=== PATIENT | male | born 1940 | race African-American/Black ===

== ENCOUNTER 2019-04-10 11:14 | Inpatient (IN) ==
[2019-04-10 11:59] LABS: BASO# 0.01 X1000 (0.0-0.2); BASO% 0.1 % (0.0-0.8); EOS# 0.06 X1000 (0.0-0.7); EOS% 0.6 % (0.0-10.0); HEMATOCRIT 32.2 % (42.0-52.0); HEMOGLOBIN 9.6 g/dL (14.0-18.0); IMM GRAN# 0.02 X1000 (0.0-0.04); IMM GRAN% 0.2 % (0.0-0.5); LYMPH# 3.62 X1000 (1.2-3.4); LYMPH% 35.8 % (20.5-51.1); MCH 31.4 PG (27-31); MCHC 29.8 g/dL (33-37); MCV 105.2 FL (81-99); MONO% 6.9 % (1.7-9.3); MPV 10.7 FL (7.4-10.4); NEUT# 5.71 X1000 (1.4-6.5); NEUT% 56.4 % (42.2-75.2); PLT 208 X1000 (130-400); RBC 3.06 XMIL (4.7-6.1); RDW 14.6 % (11.5-14.5); WBC 10.12 X1000 (4.8-10.8)
--- NOTE | 2019-04-10 11:59 | Diag Imaging Result Doc PS360 ---
EXAM: CHEST-2 VIEWS 04/10/2019 HISTORY: Chest Pain TECHNIQUE: PA and lateral chest COMMENT: There is atelectasis over the left hemidiaphragm and also in the lingula which was not present on 09/21/2017. There is also some platelike atelectasis in the right middle lobe. There are calcified right hilar and tracheobronchial nodes. IMPRESSION: Bibasilar atelectasis. Electronically signed by Daquan Almendarez 04/10/2019 11:57 AM
[2019-04-10 12:11] LABS: INR 1.13; PROTIME 14.7 Seconds (11.0-16.0); PTT 29.9 Seconds (22.3-41.8)
--- NOTE | 2019-04-10 12:50 | EKG Report ---
Test Performed on : 04/10/2019 11:19:57 AM Test Reason : Stretcher Blood Pressure : / mmHG Vent. Rate : 077 BPM Atrial Rate : 077 BPM P-R Int : 272 ms QRS Dur : 094 ms QT Int : 374 ms P-R-T Axes : 005 -11 035 degrees QTc Int : 423 ms Sinus rhythm. with 1st degree AV block. Low voltage QRS Cannot rule out Anterior infarct , age undetermined Abnormal ECG When compared with ECG of 22-SEP-2017 06:49, No significant change was found Unconfirmed Result
[2019-04-10 12:56] LABS: AGAP 19; ALB/GLOB RATIO 1.5; ALBUMIN 3.7 g/dL (3.5-5.0); ALKALINE PHOSPHATASE 98 U/L (32-122); AMYLASE 147 U/L (20-200); BUN 91 mg/dL (8-22); CALCIUM 8.1 mg/dL (8.8-10.2); CHLORIDE 106 mmol/L (98-107); CK PROFILE 113 U/L (24-204); COSMO 309; CREATININE 7.2 mg/dL (0.7-1.2); GLUCOSE 153 mg/dL (70-104); GOT 11 U/L (10-34); GPT 9 U/L (10-44); LIPASE 65 U/L (13-60); POTASSIUM 5.7 mmol/L (3.5-5.1); SODIUM 139 mmol/L (136-145); TCO2 14 mmol/L (25-35); TOTAL BILIRUBIN 0.19 mg/dL (0.20-1.00); TOTAL PROTEIN 6.2 g/dL (6.3-8.3)
--- NOTE | 2019-04-10 13:16 | EKG Report ---
Test Performed on : 04/10/2019 12:51:18 PM Test Reason : CP Blood Pressure : / mmHG Vent. Rate : 076 BPM Atrial Rate : 076 BPM P-R Int : 256 ms QRS Dur : 108 ms QT Int : 380 ms P-R-T Axes : 006 001 049 degrees QTc Int : 427 ms Sinus rhythm. with 1st degree AV block. Low voltage QRS Cannot rule out Anterior infarct (cited on or before 10-APR-2019) Abnormal ECG When compared with ECG of 10-APR-2019 11:19, (Unconfirmed) No significant change was found Unconfirmed Result
--- NOTE | 2019-04-10 14:52 | PROVIDER DOCUMENTATION ---
This chart was entered by Caridad Dwyer Scribe, acting as scribe for Kobe Anne MD. HPI-Chest Pain - General Chief Complaint: Chest Pain Stated Complaint: CHEST PAIN Time Seen by Provider: 04/10/19 11:30 Source: patient Allergies/Adverse Reactions: Patient Allergies Allergy/AdvReac Type Severity Reaction Status Date / Time No Known Allergies Allergy Verified 04/10/19 11:50 Home Medications: Home Medication List Medication Instructions Recorded Confirmed Last Taken Type Gabapentin 600 mg PO BID 01/21/17 04/10/19 09/21/17 07:00 History Tamsulosin HCl 0.4 mg PO DAILY #0 01/29/17 04/10/19 09/21/17 08:00 Rx Lisinopril [Zestril] 20 mg PO DAILY 02/25/17 04/10/19 09/21/17 07:00 History Atorvastatin Calcium [Lipitor] 40 mg PO DAILY #30 tablet 03/19/17 04/10/19 09/21/17 06:00 Rx Omeprazole 20 mg PO DAILY #30 capsule.dr 03/19/17 04/10/19 09/21/17 08:00 Rx Allopurinol [Zyloprim] 200 mg PO DAILY #30 tab 10/01/17 04/10/19 Unknown Rx Finasteride 5 mg PO DAILY 04/10/19 04/10/19 Unknown History Furosemide 80 mg PO DAILY 04/10/19 04/10/19 Unknown History - History of Present Illness-CP Nature of Presenting Problem: Patient is an 79 y/o male presenting to the ED today c/o chest pain. Patient reports last night he began to feel shakey and jittery and had sudden onset of chest pain. Patient describes pain as cramping and states it moved across his chest but did not radiate into jaw, neck, arms. Patient reports pain eventually resolved and is gone now. Patient reports pain was worse with activity. Patient states he had associated SOB and sweating. Patient reports history of diabetes, hypertension, and [place]. Patient reports significant family cardiac history. Patient denies numbness but reports subjective fever. Patient reports decreased urination and reports he has not urinated since yesterday. Location: reports: central, epigastric Chest Pain Radiation: reports: other (accross chest) Quality of Pain: reports: cramping Onset/Duration: last night Timing: resolved prior to arrival Modifying Factors: improves with: lying down. worse with: movement Associated Symptoms: reports: shortness of breath, weakness Aspirin Treatment Today: provided by EMS Prior Chest Pain/Cardiac Workup: reports: heart attack Review of Systems - Adult - REVIEW OF SYSTEMS - ADULT Constitutional: reports: fever (subjective), other (sweats) Eyes: reports: no symptoms reported. denies: eye pain Ears, Nose, Mouth & Throat: reports: no symptoms reported. denies: throat pain Cardiovascular: reports: chest pain (now resolved) Respiratory: reports: shortness of breath Gastrointestinal: reports: abdominal pain (epigastric) Genitourinary: reports: other (decreased urination) Musculoskeletal: reports: muscle aches Integumentary: reports: no symptoms reported Neurological: reports: no symptoms reported. denies: headache/migraines Psychiatric: reports: no symptoms reported Endocrine: reports: no symptoms reported Hematologic/Lymphatic: reports: no symptoms reported, other (no blood or bleeding) Allergic/Immunologic: reports: no symptoms reported, other (no swelling) All Other Systems: Reviewed and Negative Past History - Adult - PAST MEDICAL HISTORY-ADULT Review of Records: reports: Old Records Reviewed Major Childhood Illnesses: reports: denies history Cardiovascular: reports: angina, HTN, hyperlipidemia Respiratory: reports: denies history Gastrointestinal: reports: denies history Obstetrical/Gynecological: reports: denies history Genitourinary: reports: denies history Musculoskeletal: reports: denies history Neurological: reports: denies history Endocrine/Immune: reports: Diabetes Other Conditions: reports: denies history - PRIOR SURGERIES/PROCEDURES Surgical/Procedure History: reports: other (lobectomy) - IMMUNIZATION STATUS Childhood Immunizations: See Nurse Assessment Flu Vaccine: See Nurse Assessment - FAMILY HISTORY Family History: CVA/TIA, HTN, other (CAD) - SOCIAL HISTORY Smoking: quit greater than 1 year Substance Use: other (previous >40yrs ago) Alcohol Use Frequency: rarely (previous >40yrs ago) Physical Exam-General - PHYSICAL EXAM-ADULT Initial Vital Signs Reviewed: Yes - CONSTITUTIONAL General Appearance: alert, no apparent distress - EYES Eyes: negative: conjuctival exudate, sclera injected, scleral icterus, subconjunctival hemorrhage - HEAD, EARS, NOSE, MOUTH & THROAT HENMT: normocephalic/atraumatic, moist mucous membranes, pharynx normal. negative: pharyngeal erythema - NECK Neck: non-tender, supple - RESPIRATORY Respiratory: chest non-tender, no respiratory distress, decreased breath sounds (LLL). negative: crackles, stridor, wheezing - CARDIOVASCULAR Cardiovascular: regular rate, rhythm. negative: no edema (2+ LE edema) - GASTROINTESTINAL (ABDOMEN) Abdominal Exam: non tender, soft - MUSCULOSKELETAL Extremity: non-tender (LE), swelling (LE) - SKIN Integumentary: normal color, warm/dry - NEUROLOGIC Neurologic: grossly normal - PSYCHIATRIC Psych/Mental Status: normal mood/affect, normal thought content, normal thought process - HEART Score HEART Score: History: Moderately Suspicious HEART Score: ECG: Non-Specific Repolarization Disturbance/LBBB/PM HEART Score: Age: > or = 65 Years HEART Score: Risk Factors for Atherosclerotic Disease: > or = 3 Risk Factors or History of Atherosclerotic Disease HEART Score: Troponin: < or = Normal Limit Total HEART Score:: 6 Progress - PLAN OF CARE/RESULTS Progress/Plan/Lab Results: Vital Signs - 8 hr 04/10/19 11:31 04/10/19 11:33 04/10/19 11:45 Temperature Pulse Rate 77 80 76 Respiratory Rate 12 20 13 Blood Pressure 95/45 O2 Sat by Pulse Oximetry 94 L 95 96 04/10/19 11:48 04/10/19 12:00 04/10/19 12:15 Temperature 97.8 F Pulse Rate 78 76 78 Respiratory Rate 13 19 16 Blood Pressure 95/48 O2 Sat by Pulse Oximetry 93 L 100 90 L 04/10/19 12:30 04/10/19 12:45 04/10/19 13:00 Temperature Pulse Rate 76 75 76 Respiratory Rate 16 16 16 Blood Pressure O2 Sat by Pulse Oximetry 94 L 04/10/19 13:15 04/10/19 13:30 04/10/19 13:45 Temperature Pulse Rate 72 73 72 Respiratory Rate 17 15 15 Blood Pressure O2 Sat by Pulse Oximetry 94 L 97 97 04/10/19 14:00 04/10/19 14:15 04/10/19 14:20 Temperature Pulse Rate 75 73 72 Respiratory Rate 16 15 13 Blood Pressure 108/47 O2 Sat by Pulse Oximetry 93 L 99 Laboratory Results - last 24 hr 04/10/19 04/10/19 04/10/19 11:45 11:45 11:45 WBC 10.12 RBC 3.06 L Hgb 9.6 L Hct 32.2 L MCV 105.2 H MCH 31.4 H MCHC 29.8 L RDW Std Deviation 14.6 H Plt Count 208 MPV 10.7 H Immature Gran % (Auto) 0.2 Neut % (Auto) 56.4 Lymph % (Auto) 35.8 Real % (Auto) 6.9 Eos % (Auto) 0.6 Baso % (Auto) 0.1 Immature Gran # (Auto) 0.02 Neut # (Auto) 5.71 Lymph # (Auto) 3.62 H Real # (Auto) 0.70 H Eos # (Auto) 0.06 Baso # (Auto) 0.01 PT INR PTT (Actin FS) Sodium 139 Potassium 5.7 H Chloride 106 Carbon Dioxide 14 L Anion Gap 19 BUN 91 H Creatinine 7.2 H BUN/Creatinine Ratio 13 Glucose 153 H Calculated Osmolality 309 Calcium 8.1 L Total Bilirubin 0.19 L AST 11 ALT 9 L Alkaline Phosphatase 98 Creatine Kinase 113 Troponin T Gwb-A-Xryxumvchiz Pept 162 Total Protein 6.2 L Albumin 3.7 Globulin 2.5 Albumin/Globulin Ratio 1.5 Amylase 147 Lipase 65 H Plasma Lactate 04/10/19 04/10/19 04/10/19 11:45 11:45 11:45 WBC RBC Hgb Hct MCV MCH MCHC RDW Std Deviation Plt Count MPV Immature Gran % (Auto) Neut % (Auto) Lymph % (Auto) Real % (Auto) Eos % (Auto) Baso % (Auto) Immature Gran # (Auto) Neut # (Auto) Lymph # (Auto) Real # (Auto) Eos # (Auto) Baso # (Auto) PT 14.7 INR 1.13 PTT (Actin FS) 29.9 Sodium Potassium Chloride Carbon Dioxide Anion Gap BUN Creatinine BUN/Creatinine Ratio Glucose Calculated Osmolality Calcium Total Bilirubin AST ALT Alkaline Phosphatase Creatine Kinase Troponin T 0.192 H Sfp-W-Qnrfgdrsvbd Pept Total Protein Albumin Globulin Albumin/Globulin Ratio Amylase Lipase Plasma Lactate 1.0 04/10/19 13:35 WBC RBC Hgb Hct MCV MCH MCHC RDW Std Deviation Plt Count MPV Immature Gran % (Auto) Neut % (Auto) Lymph % (Auto) Real % (Auto) Eos % (Auto) Baso % (Auto) Immature Gran # (Auto) Neut # (Auto) Lymph # (Auto) Real # (Auto) Eos # (Auto) Baso # (Auto) PT INR PTT (Actin FS) Sodium Potassium Chloride Carbon Dioxide Anion Gap BUN Creatinine BUN/Creatinine Ratio Glucose Calculated Osmolality Calcium Total Bilirubin AST ALT Alkaline Phosphatase Creatine Kinase Troponin T 0.183 H Owc-Q-Hkueunoiirf Pept Total Protein Albumin Globulin Albumin/Globulin Ratio Amylase Lipase Plasma Lactate Orders Category Date Time Status Cardiac Monitoring DIRECTED Care 04/10/19 11:42 Active Gomes Cath Insertion ORDERED Care 04/10/19 14:32 Active Oxygen Therapy- ED Nursing DIRECTED Care 04/10/19 11:42 Active Saline Loc DIRECTED Care 04/10/19 11:44 Active Saline Loc NOW Care 04/10/19 11:42 Active NPO Diet 04/10/19 11:44 Active CHEST-2 VIEWS [RAD] Stat Exams 04/10/19 11:42 Completed US RENAL 2 (RETROPER) COMPLETE [US] Stat Exams 04/10/19 14:33 Ordered AMYLASE [CHEM] Stat Lab 04/10/19 11:45 Completed CBC WITH ELECTRONIC DIFF [HEME] Stat Lab 04/10/19 11:45 Completed CK PROFILE [SP CHEM] Stat Lab 04/10/19 11:45 Completed COMPREHENSIVE METABOLIC PANEL [CHEM] Stat Lab 04/10/19 11:45 Completed LACTATE, PLASMA [CHEM] Stat Lab 04/10/19 11:45 Completed LIPASE [CHEM] Stat Lab 04/10/19 11:45 Completed PRO B-NATRIURETIC PEPTIDE Stat Lab 04/10/19 11:45 Completed PROTIME WITH INR [COAG] Stat Lab 04/10/19 11:45 Completed PTT [COAG] Stat Lab 04/10/19 11:45 Completed TROPONIN T Stat Lab 04/10/19 11:45 Completed TROPONIN T Stat Lab 04/10/19 13:35 Completed URINALYSIS W/POSS RFLX CULT [URINALYSIS] Stat Lab 04/10/19 11:44 Uncollected CP/SOB/Palp >45 yrs of Age Stat Oth 04/10/19 11:42 Ordered EKG [EKG] Stat Ther 04/10/19 11:42 Draft EKG [EKG] Stat Ther 04/10/19 12:44 Draft Result Diagrams: 04/10/19 11:45 04/10/19 11:45 - REASSESSMENT Reassessment #1 Status: other (Scribe note updated and reviewed.) - EKG 1 Time of EKG reading by physician:: 11:19 EKG Read and Signed by:: Kobe Anne EKG Interpretation (*Must complete 3 of following elements*): Abnormal Rate: 77 Rhythm: sinus rhythm with 1st degree AV block ST Wave: non-specific ST changes Comments: No STEMI - XRAY 1 XRAY Study: Chest Impression: See EMR Report (EXAM: CHEST-2 VIEWS 04/10/2019 HISTORY: Chest Pain TECHNIQUE: PA and lateral chest COMMENT: There is atelectasis over the left hemidiaphragm and also in the lingula which was not present on 09/21/2017. There is also some platelike atelectasis in the right middle lobe. There are calcified right hilar and tracheobronchial nodes. IMPRESSION: Bibasilar atelectasis. Electronically signed by Daquan Almendarez 04/10/2019 11:57 AM 04/10/19 1157 Interpreting Physician: Daquan Almendarez MD Dictated Date/Time: 04/10/19 1156 cc: Kobe Anne MD; Maynor Radford MD) - CONSULTS/PCP/HOSPITALIST Notification #1 *Consult/PCP/Hospitalist*: Prabhakar- PCP Time Discussed: 14:40 (Discussed patient with Dr. Radford who recommends admission) Consult Disposition: Admit Departure - Departure Date of Disposition Decision: 04/10/19 Time of Disposition Decision: 14:51 DIAGNOSIS: Chest pain Qualifiers: Chest pain type: unspecified Qualified Code(s): R07.9 - Chest pain, unspecified Disposition: ADMITTED INPATIENT 09 Certified Medical Emergency: Emergent Condition: Fair Referrals and Follow-Ups: Maynor Radford MD [Primary Care Provider] - - Critical Care Note This patient required my direct & personal management of CC.: No Attestation - Physician/ GOOD Attestation Patient care was provided by Advanced Practice Provider:: No The physician spent face to face time with patient:: Yes Advanced Practice Provider documentation review:: Supervising physician onsite and consulted in the evaluation and care of this patient. The physician did have a face to face encounter with the patient. This chart was documented by the indicated scribe, (Caridad Dwyer, [place]) and accurately reflects the services I performed and decisions made by me, Kobe Anne MD, as attested by the provider's signature.
[2019-04-10 15:34] LABS: URINE SOURCE CLEAN CATCH
[2019-04-10 15:37] LABS: BILIRUBIN URINE NEGATIVE (NEGATIVE); BLOOD URINE MODERATE (NEGATIVE); COLOR ORANGE; GLUCOSE URINE NEGATIVE (NEGATIVE); KETONE URINE NEGATIVE (NEGATIVE); LEUKOCYTES URINE LARGE (NEGATIVE); NITRITE URINE NEGATIVE (NEGATIVE); PH URINE 5.5; PROTEIN URINE 200 mg/dL (NEGATIVE); SP GRAVITY URINE 1.018; TURBIDITY URINE TURBID (CLEAR); UROBILINOGEN URINE NORMAL (NORMAL)
[2019-04-10 15:44] LABS: UR EPITHELIAL CELLS <10 /HPF (<10); URINE BACTERIA 3+ /HPF; URINE RBC <10 /HPF (<10); URINE WBC TNTC /HPF (<10)
--- NOTE | 2019-04-10 18:32 | Diag Imaging Result Doc PS360 ---
EXAM: US RENAL 2 (RETROPER) COMPLETE 04/10/2019 HISTORY: KYLE TECHNIQUE: Renal ultrasound COMMENT: The right kidney is 10 x 5.1 x 5 cm the left is 10.2 x 5.3 x 5.3 cm. The bladder contains a Gomes catheter is not distended. There is no evidence of hydronephrosis. No masses are demonstrated. IMPRESSION: No evidence of obstructive uropathy. Electronically signed by Daquan Almendarez 04/10/2019 6:29 PM
--- NOTE | 2019-04-10 20:00 | ED EKG INTERP ---
EKG Interpretation - EKG EKG Read and Signed by:: Kobe Anne (EKG taken 12:51) EKG Interpretation (*Must complete 3 of following elements*): Abnormal Rate: 76 Rhythm: sinus [place]: normal QRS: normal [place] Interval: prolonged (256) ST Wave: normal Prior EKG Comparison: unchanged from prior Comments: 1st degree AV block noted on previous Attestation - Physician/ GOOD Attestation Patient care was provided by Advanced Practice Provider:: No The physician spent face to face time with patient:: Yes Advanced Practice Provider documentation review:: Supervising physician onsite and consulted in the evaluation and care of this patient. The physician did have a face to face encounter with the patient.
[2019-04-10] MEDS: NS 1,000 ML IV SCH (22:03)
[2019-04-10] MEDS: LOVENOX SUBQ SCH (22:04)
[2019-04-10] MEDS: PROTONIX IV SCH (22:04)
[2019-04-11 05:16] LABS: BASO# 0.02 X1000 (0.0-0.2); BASO% 0.2 % (0.0-0.8); EOS# 0.08 X1000 (0.0-0.7); EOS% 0.9 % (0.0-10.0); HEMATOCRIT 32.4 % (42.0-52.0); HEMOGLOBIN 9.6 g/dL (14.0-18.0); IMM GRAN# 0.03 X1000 (0.0-0.04); IMM GRAN% 0.3 % (0.0-0.5); LYMPH# 3.65 X1000 (1.2-3.4); LYMPH% 39.9 % (20.5-51.1); MCHC 29.6 g/dL (33-37); MCV 104.5 FL (81-99); MONO# 0.92 X1000 (0.11-0.59); MONO% 10.1 % (1.7-9.3); MPV 10.8 FL (7.4-10.4); NEUT# 4.45 X1000 (1.4-6.5); NEUT% 48.6 % (42.2-75.2); PLT 204 X1000 (130-400); RDW 14.3 % (11.5-14.5); WBC 9.15 X1000 (4.8-10.8)
[2019-04-11 05:36] LABS: CALCIUM 8.1 mg/dL (8.8-10.2); CREATININE 8.7 mg/dL (0.7-1.2); POTASSIUM 5.4 mmol/L (3.5-5.1)
--- NOTE | 2019-04-11 05:55 | HISTORY AND PHYSICAL ---
CHIEF COMPLAINT: The patient came in with chest pain last night, shaky, sudden onset of chest pain. He has been cramping and it moved across the chest, did not radiate into the jaw and arms. Significant family history of cardiac history. The patient has decreased urination, has not urinated since yesterday. HISTORY OF PRESENT ILLNESS: He is an 79-year-old male was brought in by the family with above complaints. The ER doctor reported his EKG was nothing acute. I spoke to him on the telephone, and recently was seen by Dr. Dominguez in December. He had a normal echo. He had chronic kidney disease. He has been referred to temp recruiter, Dr. Mancuso. His baseline creatinine is 2.7. He does not warrant any further cardiac workup. Troponin was positive because of the chronic kidney disease. I did ask the ER doctor to put a Gomes, and get a renal ultrasound. After Gomes, he had 150 mL of urine. Ultrasound did not show any evidence of hydronephrosis. He is making some urine cloudy. He is not offering any chest pain. I saw the patient in the ER. Anyhow, he has been admitted to the hospital for the following. 1. Follow up on cardiac workup. 2. Acute kidney injury with chronic renal failure. I am going to stop his blood pressure medicine with gentle hydration 80 mL an hour, and follow up on renal function tests. Consider Nephrology consult if things do not get better. His potassium is 5.7. His EKG did not show any prolonged QT interval. As a result, he has been admitted to the hospital. PAST MEDICAL HISTORY: 1. Atypical chest pain. Last stress test was -2015. 2. BPH. Biopsy was negative for malignancy by Dr. Luna. 3. Cataracts. 4. Onychomycosis. 5. Type 2 diabetes. 6. Perforated gastric ulcer. 7. Gout. 8. Hyperlipidemia. 9. Hypertension. 10. Hypogonadism. 11. Chronic kidney disease with baseline creatinine of 2.0. PAST SURGICAL HISTORY: Left lung surgery for granulomatosis changes in 1973. MEDICATIONS: 1. Gabapentin 600 b.i.d. 2. Flomax 0.4 daily. 3. Lisinopril 20 daily. 4. Prilosec 20 daily. 5. Lipitor 40 daily. 6. Zyloprim 200 daily. 7. Finasteride 5 mg daily. 8. Lasix 80 mg daily. ALLERGIES: Not known. SOCIAL HISTORY: . Two kids living in [place]. Retired from [employer]. No smoking. No alcohol. No drug abuse. FAMILY HISTORY: Father at the age of 69 in good health. Mom of heart attack at 50. HEALTH MAINTENANCE: Flu vaccine February of 2018, pneumococcal in 2013. He was seen in my office on 10/19/2018. He was supposed to come back in March for annual exam. He was also seen by Dr. Dominguez on 12/23/2018. He reported he had a normal echocardiography, and not pursuing any cardiac workup at this time. He had a normal ejection fraction of 65%. REVIEW OF SYSTEMS: HEENT: No headache. No vision problem. No earache. No sore throat. Neck: No goiter. No lymphadenopathy. No bruit. Cardiopulmonary: Chest pain free. No shortness of breath, PND, or orthopnea. GI: No nausea, vomiting, abdominal pain. : Trouble with peeing. Gomes was placed. No swelling of feet. Neurologic: No obvious deficits. PHYSICAL EXAMINATION: He is afebrile. Pulse 68, blood pressure 118/46. He is heavy set. HEENT: Atraumatic, normocephalic. Pupils equal and reactive to light. NECK: Supple. No lymphadenopathy. CHEST: Bilateral air entry. HEART: Sounds are regular. ABDOMEN: Belly is soft, obese, and nontender. : Gomes was placed. SKIN: He had a rash around the pubic line. He had dry skin. MUSCULOSKELETAL: No peripheral edema. Decreased pulses in both feet. NEUROLOGIC: No obvious neurological deficits. INVESTIGATIONS: 1. White cell count 10, hematocrit 32, MCV 105, and platelets 208,000. PT 14. INR 1.1. Sodium 139, potassium 5.7, chloride 106, anion gap 19, BUN 91, creatinine 7.2, and glucose 153. CK was negative. Amylase and lipase were normal. Urinalysis positive for blood. 2. Urine cultures are pending. 3. Chest x-ray: Atelectasis bibasilar. 4. EKG sinus rhythm, first-degree AV block. 5. Renal ultrasound right kidney 10, left kidney 10. Gomes catheter was placed. No evidence of hydronephrosis. ASSESSMENT AND PLAN: 1. An 79-year-old male admitted to the hospital with chest pain. EKG nondiagnostic, previous workup by Dr. Dominguez. Normal LV function. Did not warrant workup. Continue to monitor in telemetry. 2. Acute kidney injury with chronic renal failure. Rule out post obstruction. Continue on Gomes. Gentle hydration. Follow up on renal function tests. 3. Hyperkalemia is at target. 4. DVT prophylaxis with Lovenox. 5. GI prophylaxis with IV Protonix. 6. History of gastric ulcer with perforation with omental patch, stable. 7. History of BPH on Flomax and Proscar. Last PSA was 4.7. 8. Type 2 diabetes controlled on diet. 9. History of glyburide in the past. 10. Chronic kidney disease. Baseline creatinine 2.0. 11. Hypertension on lisinopril 20 daily. 12. Hyperlipidemia on Lipitor 80 daily. 13. Bilateral cataracts, stable. 14. Atypical chest pain. Negative cardiac evaluation June of 2015 with calcium score. 15. History of gout on allopurinol. 16. History of bilateral nonhealing ulcers, status post skin graft by Dr. Mayberry. 17. Initiate vaccination protocol and pneumococcal vaccine 23 was given in 2017. He needs pneumococcal 13 prior to the discharge. 18. Will follow up. cc: Abdulkadir Radford MD MTDAnnabel
[2019-04-11] MEDS: NS 1,000 ML IV SCH ×2 (08:45→21:39)
[2019-04-11 16:30] LABS: CALCIUM 7.7 mg/dL (8.8-10.2); CREATININE 8.9 mg/dL (0.7-1.2)
[2019-04-11 16:35] LABS: POTASSIUM 6.2 mmol/L (3.5-5.1)
[2019-04-11] MEDS ORDERED: KAYEXALATE PO ONE (16:42)
[2019-04-11] MEDS ORDERED: CALCIUM GLUCONATE 1 GM in NS 50 ML IV ONE (16:43)
[2019-04-11] MEDS: LOKELMA POWDER PACKET PO SCH (17:10)
[2019-04-11] MEDS ORDERED: LEVAQUIN 250 MG/D5W 250 MG/50 ML IVPB IV ONE (19:17)
--- NOTE | 2019-04-11 19:37 | PROGRESS NOTE ---
DATE: 04/11/2019 SUBJECTIVE: The patient is having some delirium, myoclonus, shaking spells, not eating well. Gomes catheter was placed. He is not making any urine output. Hemodynamics are stable. Urine is very cloudy, growing gram-negative rods, and ultrasound is negative for hydronephrosis. I did stop the JORDAN inhibitors. OBJECTIVE: Vital signs: Temperature is 98 degrees, pulse 90, blood pressure is 107/38. General: Slightly confused, delirious, with jerking of the shoulders. Chest: Clear. Cardiovascular: Heart sounds are regular. Abdomen: Belly is soft, obese. Neurological: There were no obvious deficits. INVESTIGATIONS: CBC: White cell count 9.1, hematocrit 32.4, platelet count 204,000. Sodium 136, potassium 6.2, chloride 106, BUN 92, creatinine 8.9, glucose 100, calcium 7.7. Urinalysis: Positive for infection with gram-negative rods. ASSESSMENT AND PLAN: 1. Acute kidney injury with chronic kidney failure, not able to improve, rule out post obstruction. 2. Hyperkalemia. The patient was given calcium gluconate, Kayexalate, and Dr. Mancuso was given sodium zirconium powder Lokelma 10 mg p.o. t.i.d. 3. Gastrointestinal prophylaxis with intravenous Protonix, deep venous thrombosis prophylaxis with Lovenox. 4. Preparing for temporary dialysis, and the patient is agreed upon. Discussed with Dr. Mancuso. He is going to discuss with Dr. Ch who is fire control system installer for having a Vas-Cath, and we will check the labs in the morning. 5. Urinary tract infection. Consider using Levaquin post dialysis. We can give 1 dose of Levaquin. We will follow up. LEVEL OF DOCUMENTATION: 25 minutes. cc: Abdulkadir Radford MD
[2019-04-11] MEDS: LOVENOX SUBQ SCH (21:38)
[2019-04-11] MEDS: PROTONIX IV SCH (21:38)
[2019-04-11] MEDS: SODIUM CHLORIDE 0.9% INJ SCH (21:39)
[2019-04-12 05:20] LABS: BASO# 0.01 X1000 (0.0-0.2); BASO% 0.1 % (0.0-0.8); EOS# 0.07 X1000 (0.0-0.7); EOS% 0.6 % (0.0-10.0); HEMATOCRIT 28.9 % (42.0-52.0); HEMOGLOBIN 8.8 g/dL (14.0-18.0); IMM GRAN# 0.04 X1000 (0.0-0.04); IMM GRAN% 0.4 % (0.0-0.5); MCH 31.4 PG (27-31); MCHC 30.4 g/dL (33-37); MCV 103.2 FL (81-99); MONO# 1.17 X1000 (0.11-0.59); MONO% 10.9 % (1.7-9.3); MPV 10.4 FL (7.4-10.4); NEUT# 6.69 X1000 (1.4-6.5); PLT 186 X1000 (130-400); RDW 13.9 % (11.5-14.5); WBC 10.78 X1000 (4.8-10.8)
[2019-04-12 05:44] LABS: CALCIUM 7.7 mg/dL (8.8-10.2); CREATININE 9.9 mg/dL (0.7-1.2); POTASSIUM 5.8 mmol/L (3.5-5.1)
[2019-04-12] MEDS ORDERED: DIPRIVAN 1% ONE (08:53)
[2019-04-12] MEDS ORDERED: XYLOCAINE-MPF 2% ONE (08:53)
[2019-04-12] MEDS ORDERED: XYLOCAINE 1%/EPI 1:100,000 ONE (10:09)
[2019-04-12] MEDS ORDERED: XYLOCAINE 1% ONE (10:09)
[2019-04-12] MEDS ORDERED: NS 250 ML ONE (10:09)
[2019-04-12] MEDS ORDERED: CALCIUM CHLORIDE SYRINGE ONE (10:26)
[2019-04-12] MEDS ORDERED: NEO-SYNEPHRINE ONE ×3 (10:34→10:42)
[2019-04-12] MEDS ORDERED: LEVAQUIN 250 MG/D5W 250 MG/50 ML IVPB IV ONE ×2 (11:00→18:04)
[2019-04-12] MEDS ORDERED: ULTRAM PO PRN (11:35)
--- NOTE | 2019-04-12 11:45 | OPERATIVE NOTE ---
PROCEDURE DATE: 04/12/2019 PREOPERATIVE DIAGNOSIS: Acute on chronic kidney disease. POSTOPERATIVE DIAGNOSIS: Acute on chronic kidney disease. PROCEDURE: Insertion of tunneled central venous dialysis catheter with ultrasound and fluoroscopic guidance. SURGEON: Augusto Mayberry MD. ANESTHESIA: General. ESTIMATED BLOOD LOSS: 30 mL. COMPLICATIONS: None apparent. SPECIMENS: None. FINDINGS: The right internal jugular vein was found with ultrasound. It was compressible and patent without thrombus. Fluoroscopy revealed proper placement of the wire followed by the catheter to the superior vena cava right atrial junction. TECHNIQUE: The patient was brought to the operating room, and placed supine on the table. General anesthesia was induced. He was prepped and draped in the usual sterile fashion. His right internal jugular vein was found with ultrasound, and accessed with a needle under ultrasound guidance. The wire passed through the needle easily, and was confirmed to be in the right atrium with fluoroscopy. I made an incision in the skin around the wire, and a counter incision below the right clavicle. I then tunneled the catheter subcutaneously from the lower incision down through the neck incision. The dilators were passed over the wire. The sheath was passed over the wire. The wire and dilator was removed. The catheter was passed into the sheath. The sheath was removed. The tip of the catheter was positioned appropriately at the superior vena cava right atrial junction. Both ports evelia back blood easily, and were flushed with saline easily. Sterile caps were placed. The hub was anchored to the skin with nylon suture. The insertion site in the neck was closed with a subcuticular 4-0 Biosyn. Sterile dressings were applied. There were no apparent complications. The patient was noted to have elevated central venous pressure during the case. cc: MD Abdulkadir Posada MD
--- NOTE | 2019-04-12 11:59 | Diag Imaging Result Doc PS360 ---
EXAM: CHEST-PORTABLE HISTORY: s/p cvl placement TECHNIQUE: Single view COMPARISON: 04/10/2019 FINDINGS: Interval placement of a right jugular line. The tip overlies the distal superior vena cava. No pneumothorax. The lungs are well expanded except for atelectasis in the lower right lung. The heart is not enlarged. The vessels are not distended. There are no infiltrates. No effusion identified. IMPRESSION: No postprocedural pneumothorax. Electronically signed by Eliot Guevara 04/12/2019 11:57 AM
--- NOTE | 2019-04-12 12:49 | NEPHROLOGY CONSULTATION ---
DATE: 04/12/2019 REASON FOR CONSULTATION: Acute kidney injury overlying chronic kidney disease. HISTORY OF PRESENT ILLNESS: Mr. Alvarez is an 79-year-old white male who has multiple medical problems. He has seen us in the past, but not in several years. He was referred to us in December, but was not seen. At that time, his creatinine was 3.1. He was brought to the emergency room because of worsening chest pain that he described as crampy and migratory across the chest, but not radiating. He was evaluated in the emergency room and his blood pressure was low at 95/45, with heart rate 80 and respirations 20. His initial laboratory data on arrival found BUN 91, creatinine 7.2 with potassium 5.7 and bicarbonate of 14. He was treated with IV fluid resuscitation and underwent imaging with a renal ultrasound. This disclosed 10 cm kidneys bilaterally with no obstruction. Despite the fluids, his creatinine continue to rise. CK was normal and his urine was grossly purulent and dipstick with heavy protein, blood and white blood cells. Because of his worsening laboratory data and very low urine volume, he was taken to the operating room for tunneled catheter in order to initiate dialysis today. He was seen by me in the recovery room, but is somnolent and not able to answer questions. PAST MEDICAL HISTORY: CKD, diabetes, hypertension, gout, hyperlipidemia. HOME MEDICATIONS: Include gabapentin, Flomax, lisinopril, Prilosec, Lipitor, Zyloprim, finasteride, furosemide. ALLERGIES: None. SOCIAL HISTORY: He is and lives in [place]. FAMILY HISTORY AND REVIEW OF SYSTEMS: Reviewed from Dr. Radford's note, and otherwise not contributory to the problem. OBJECTIVE: Vital Signs: Blood pressure 142/49, heart rate 90 respirations 15, afebrile. General: No acute distress. Skin: Warm and dry. Dry eschars on both heels. Staff reports possible sacral decubitus as well. HEENT: Pupils are equal. Conjunctivae are pink. Oropharynx is moist. Neck: Neck veins are not appreciated. Heart: Regular. No rubs. Lungs: Equal, shallow. No crackles. Abdomen: Soft, nontender. Bowel sounds are present. No organomegaly, masses, bruits. Extremities: Minimal edema. No clubbing or cyanosis. IMPRESSION: Renal failure. Progressive over months. Uremic. He will receive dialysis today and daily for the next 3 days. We will keep his volume status roughly even. Two potassium bath. Moderately hyperkalemic. Continue evaluation. cc: MD Abdulkadir Pollard MD
[2019-04-12] MEDS: LOKELMA POWDER PACKET PO SCH ×2 (13:45→14:11)
[2019-04-12] MEDS: NS 1,000 ML IV SCH (15:21)
[2019-04-12] MEDS ORDERED: TIGHT: 0.2 ML/HR FOR DIALYSIS MISC PRN (17:52)
[2019-04-12] MEDS ORDERED: NS 2,000 ML MISC PRN (17:52)
[2019-04-12] MEDS ORDERED: HEPARIN IV PRN (17:52)
--- NOTE | 2019-04-12 18:28 | PROGRESS NOTE ---
DATE: 04/12/2019 SUBJECTIVE: The patient denies any acute complaints. He does appear to be a very poor historian. OBJECTIVE: Vital Signs: Temperature 97.6 degrees, pulse 92 per minute, respiratory rate 18 per minute, blood pressure 108/36, pulse oximetry 99% on room air. General: The patient is awake and alert. He does not appear to be in any distress. Cardiovascular system: First and second heart sounds are audible without any murmurs or gallops. Respiratory system: Bilateral lung air entry is moderately decreased without any rales or rhonchi. Gastrointestinal System: Patient is obese. Abdomen is soft and nondistended. Normal bowel sounds are present. Musculoskeletal System: No deformities are present. DIAGNOSTIC DATA: CBC shows hemoglobin of 8.8, hematocrit 28.9 with an 103.2 MCV. Rest of the CBC is nondiagnostic. Chemistry this morning showed potassium level of 5.8, BUN 97, and creatinine 9.9. Rest of the basic metabolic panel is nondiagnostic. Urinalysis done 2 days ago showed moderate blood and large leukocytes with [id number] WBCs on microscopy. IMPRESSION: 1. Progressively worsening renal failure with acute kidney injury on chronic kidney disease. 2. Hyperkalemia secondary to renal failure. 3. Urinary tract infection. PLAN: The patient is currently getting hemodialysis with a potassium bath and will continue to get daily hemodialysis for next 3 days as per Nephrology. He will also continue to get levofloxacin for urinary tract infection. We will monitor his renal function and electrolytes on a daily basis. Further recommendations will be as per hospital course. cc: MD Abdulkadir Quintana MD
[2019-04-12] MEDS: PROTONIX IV SCH (22:00)
[2019-04-12] MEDS: SODIUM CHLORIDE 0.9% INJ SCH (22:00)
[2019-04-12] MEDS: LOVENOX SUBQ SCH (22:00)
[2019-04-13 05:31] LABS: BASO# 0.01 X1000 (0.0-0.2); BASO% 0.1 % (0.0-0.8); EOS# 0.07 X1000 (0.0-0.7); EOS% 0.8 % (0.0-10.0); HEMATOCRIT 26.9 % (42.0-52.0); HEMOGLOBIN 8.4 g/dL (14.0-18.0); IMM GRAN# 0.02 X1000 (0.0-0.04); IMM GRAN% 0.2 % (0.0-0.5); LYMPH# 2.31 X1000 (1.2-3.4); LYMPH% 26.7 % (20.5-51.1); MCH 31.2 PG (27-31); MCHC 31.2 g/dL (33-37); MONO# 0.88 X1000 (0.11-0.59); MONO% 10.2 % (1.7-9.3); MPV 10.6 FL (7.4-10.4); NEUT# 5.35 X1000 (1.4-6.5); PLT 147 X1000 (130-400); RBC 2.69 XMIL (4.7-6.1); RDW 13.4 % (11.5-14.5); WBC 8.64 X1000 (4.8-10.8)
[2019-04-13] MEDS ORDERED: TIGHT: 0.2 ML/HR FOR DIALYSIS MISC PRN (06:12)
[2019-04-13] MEDS ORDERED: HEPARIN IV PRN (06:12)
[2019-04-13] MEDS: NS 1,000 ML IV SCH (06:12)
[2019-04-13] MEDS ORDERED: NS 2,000 ML MISC PRN (06:12)
[2019-04-13 06:27] LABS: CALCIUM 7.1 mg/dL (8.8-10.2); CREATININE 6.3 mg/dL (0.7-1.2)
[2019-04-13 14:07] LABS: HEPATITIS PROFILE ACUTE SEE COMMENTS
--- NOTE | 2019-04-13 15:53 | PROVIDER PROGRESS NOTE ---
Progress Note Subjective: patient able to follow commands but is slow to speak and respond. He does not answer every question asked. He denies any nausea, vomiting, shortness of breath, or chest pain. Objective: temperature 97.6, pulse 82, respirations 17, blood pressure 156/41, O2 sat 100% on room air. General: obese -Chinese male lying in bed in no acute distress HEENT: normocephalic, atraumatic, pupils equal and reactive, mucous membranes moist. Trachea midline. Skin: warm and dry. Dry eschars to bilateral heels. Neck: supple, no JVD appreciated. Cardiovascular: S1S2, regular rate and rhythm. No murmurs or gallops. Cardiovascular: clear anteriorly with equal entry. Abdomen: soft, nontender nondistended. Bowel sounds active. : non-inspected. Gomes in place with white ad urine noted. Extremities: trace edema to bilateral lower extremities. Neurological: alert and oriented to person. Labs: WBC 8.64, hemoglobin 8.4, hematocrit 26.9, platelet count 147, sodium 134, potassium four, chloride 97, carbon dioxide 20, BUN 54, creatinine 6.3. Intake 2908, output 2154. Impression: Acute on chronic renal failure. His creatinine is improved at 6.3 today. He did receive urgent renal replacement therapy yesterday. His new tunnel catheter has some bright red blood noted to the dressing. We will have the dialysis nurse change this with his hemodialysis treatment today. 3.5 hour, 2 K bath, 2L UF. Blood pressure. Above target. He has orders for hemodialysis today and we will monitor his blood pressure after treatment. Fluid volume. Euvolemic on exam. Anemia. Low. Does not meet transfusion criteria at this time. Electrolytes and acid base balance. Improving with hemodialysis treatment. Nutrition. Has been refusing meals. Encouraged to eat. Ambulation. Ordered PT/OT Medication review. Stop IV fluids. Social service consult for evaluation of home care. Wound care ordered for bilateral heels.
[2019-04-13] MEDS ORDERED: KEFZOL 1 GM/D5W 1 GM/50 ML IVPB IV ONE (18:55)
[2019-04-13] MEDS: PROTONIX IV SCH (19:38)
--- NOTE | 2019-04-13 20:44 | PROGRESS NOTE ---
DATE: 04/13/2019 SUBJECTIVE: Interval history was reviewed. The patient has a tunnel catheter on the right subclavian by Dr. Mayberry. He was getting dialysis yesterday as well as today. No urine output. Urine cultures grew E. coli, resistant to Levaquin. The patient's mental status is slowly improving. OBJECTIVE: Temperature is 98 degrees. Vital signs are stable. HEENT exam within normal limits, and he has a tunnel catheter on the right side. Chest is clear. Heart sounds are regular. Belly is soft, nontender. No obvious neurological deficits. LABORATORY DATA: White cell count 8.6, hematocrit 26.9, platelets 147,000. Sodium 134, potassium 4.0, BUN 54, creatinine 6.3. Hepatitis panel was negative. Urine culture: E. coli, resistant to Levaquin. ASSESSMENT AND PLAN: 1. Endstage kidney disease, rule out postobstruction, on temporary dialysis. 2. Hyperkalemia, better. 3. Escherichia coli. We will change the Keflex 1 g postdialysis. 4. Deep venous thrombosis and gastrointestinal prophylaxis as per order sheet. 5. We will slowly reconcile home medicines once his clinical situation is improved. cc: Abdulkadir Radford MD
[2019-04-13] MEDS: LOVENOX SUBQ SCH (20:57)
[2019-04-14 06:01] LABS: ALBUMIN 3.1 g/dL (3.5-5.0); CALCIUM 7.6 mg/dL (8.8-10.2); CREATININE 4.9 mg/dL (0.7-1.2); PHOSPHORUS 3.5 mg/dL (2.7-4.5); POTASSIUM 3.4 mmol/L (3.5-5.1)
[2019-04-14 06:02] LABS: HEMATOCRIT 24.7 % (42.0-52.0); HEMOGLOBIN 8.1 g/dL (14.0-18.0); MCH 32.4 PG (27-31); MCHC 32.8 g/dL (33-37); MCV 98.8 FL (81-99); MPV 10.9 FL (7.4-10.4); RBC 2.5 XMIL (4.7-6.1); RDW 13.2 % (11.5-14.5); WBC 9.49 X1000 (4.8-10.8)
[2019-04-14] MEDS ORDERED: NS 2,000 ML MISC PRN (07:51)
[2019-04-14] MEDS: LIPITOR PO SCH (08:46)
[2019-04-14] MEDS: ZYLOPRIM PO SCH (08:46)
--- NOTE | 2019-04-14 11:56 | NEPHROLOGY PROGRESS NOTE ---
DATE: 04/14/2019 SUBJECTIVE: He is much more awake. He shook my hand, answers my questions. He states he does been most of his time in the bed at home but cannot really tell me why. He states he can walk with a walker. No shortness of breath. OBJECTIVE: Vital Signs: Blood pressure 170/72, heart rate 87, respirations 19, afebrile. General: No acute distress. Skin: Warm and dry. Neck: Neck veins are not appreciated. Heart: Regular. No gallops. Lungs: Equal, no crackles. Abdomen: Obese, soft, nontender. Extremities: Minimal edema. Heels are not examined. IMPRESSION AND PLAN: Renal failure. Likely chronic kidney disease 5D. He will have dialysis today using a 3 potassium bath and a goal of 2 L ultrafiltration. cc: MD Abdulkadir Pollard MD
--- NOTE | 2019-04-14 19:44 | PROGRESS NOTE ---
DATE: 04/14/2019 SUBJECTIVE: The patient is a little better. He is getting dialysis temporarily with a Trevon catheter. REVIEW OF SYSTEMS: None reported. OBJECTIVE: Temperature is 98 degrees, pulse 76. Vitals are stable, 99% on room air. As per the nurses, he is making urine output 40 an hour since this morning.Chest: Clear. Heart sounds are regular. Belly is soft, obese, nontender. INVESTIGATIONS: CBC: White cell count 9.4, hematocrit 24, platelets 154,000. Sodium 137, potassium 3.4, BUN 32, creatinine 4.9. Hepatitis panel was negative. ASSESSMENT AND PLAN: 1. Acute kidney injury with chronic renal failure. On temporary dialysis. 2. Oliguric renal failure. Improving. Ultrasound is negative. 3. Continue deep vein thrombosis prophylaxis with Lovenox and gastrointestinal prophylaxis with intravenous Protonix. 4. History of gout. On allopurinol. 5. Hyperlipidemia. On Lipitor. 6. We will continue to monitor renal function tests and appreciate Dr. Mancuso's consult. LEVEL OF DOCUMENTATION: 25 minutes. cc: Abdulkadir Radford MD
[2019-04-14] MEDS: LOVENOX SUBQ SCH (20:44)
[2019-04-14] MEDS: PROTONIX IV SCH (20:44)
[2019-04-14] MEDS: SODIUM CHLORIDE 0.9% INJ SCH (20:44)
[2019-04-15 07:47] LABS: HEMOGLOBIN 8.7 g/dL (14.0-18.0); MCH 31.9 PG (27-31); MCHC 32.2 g/dL (33-37); MCV 98.9 FL (81-99); MPV 10.1 FL (7.4-10.4); RBC 2.73 XMIL (4.7-6.1); RDW 13.1 % (11.5-14.5); WBC 9.93 X1000 (4.8-10.8)
[2019-04-15 08:14] LABS: ALBUMIN 3.4 g/dL (3.5-5.0); CALCIUM 7.8 mg/dL (8.8-10.2); CREATININE 4.5 mg/dL (0.7-1.2); POTASSIUM 3.1 mmol/L (3.5-5.1)
[2019-04-15 08:38] LABS: FERRITIN 599 ng/mL (30-400)
[2019-04-15 09:09] LABS: IRON SATURATION 17 %; TIBC 162 ug/dL; TOTAL IRON 28 ug/dL (53-167); UNBOUND IRON 134 ug/dL (112-346)
[2019-04-15] MEDS: ZYLOPRIM PO SCH (09:56)
[2019-04-15] MEDS: LIPITOR PO SCH (09:56)
--- NOTE | 2019-04-15 12:51 | PROGRESS NOTE ---
DATE: 04/15/2019 Mr. Jason has acute on chronic renal failure. He gets dialysis. He has history of gout. Also, he has been on allopurinol. BUN was 22, creatinine 4.5, phosphorus was 3.0. He is being seen by Dr. Mancuso. Overall condition is stable. We will continue with the current management on him. -5 cc: MD Abdulkadir Edwards MD
--- NOTE | 2019-04-15 14:58 | NEPHROLOGY PROGRESS NOTE ---
DATE: 04/15/2019 SUBJECTIVE: He is doing about the same. A little more alert and interactive. He states he has been at least up on the side of the bed with therapy. OBJECTIVE: Vital Signs: Blood pressure 180/80, heart rate 78, respirations 16, afebrile. General: No acute distress. Skin: Warm and dry. Neck: Neck veins are not distended. Heart: Regular. No gallops. Lungs: Equal. No crackles. Abdomen: Soft, nontender. Bowel sounds present. Extremities: No edema, clubbing, or cyanosis. IMPRESSION: CKD 5 D. Likely. Continue routine dialysis on Wednesday. Volume status is acceptable. Electrolytes are acceptable. Acid-base in target. cc: MD Abdulkadir Pollard MD
[2019-04-15] MEDS: SODIUM CHLORIDE 0.9% INJ SCH (20:40)
[2019-04-15] MEDS: PROTONIX IV SCH (20:40)
[2019-04-15] MEDS: LOVENOX SUBQ SCH (20:40)
[2019-04-16 06:18] LABS: HEMOGLOBIN 8.9 g/dL (14.0-18.0); MCH 30.9 PG (27-31); MCHC 31.8 g/dL (33-37); MCV 97.2 FL (81-99); MPV 9.6 FL (7.4-10.4); RBC 2.88 XMIL (4.7-6.1); RDW 12.6 % (11.5-14.5); WBC 8.83 X1000 (4.8-10.8)
[2019-04-16 06:42] LABS: ALBUMIN 3.1 g/dL (3.5-5.0); CALCIUM 7.6 mg/dL (8.8-10.2); PHOSPHORUS 3.8 mg/dL (2.7-4.5); POTASSIUM 3.2 mmol/L (3.5-5.1)
[2019-04-16 06:54] LABS: CREATININE 5.6 mg/dL (0.7-1.2)
[2019-04-16] MEDS: LIPITOR PO SCH (09:18)
[2019-04-16] MEDS: ZYLOPRIM PO SCH (09:18)
--- NOTE | 2019-04-16 14:35 | PROGRESS NOTE ---
DATE: 04/16/2019 Mr. Alvarez's blood sugar was 94. Other lab values revealed hemoglobin was 8.9, hematocrit 28, white count 8.83. Electrolytes are normal, except that his potassium is 3.2, creatinine is 5.6. He is going to get dialysis tomorrow. -3 cc: MD Abdulkadir Edwards MD
[2019-04-16] MEDS: SODIUM CHLORIDE 0.9% INJ SCH (18:45)
[2019-04-16] MEDS: PROTONIX IV SCH (18:45)
[2019-04-16] MEDS: LOVENOX SUBQ SCH (19:43)
[2019-04-17] MEDS ORDERED: HEPARIN IV PRN (06:10)
[2019-04-17] MEDS ORDERED: NS 2,000 ML MISC PRN (06:10)
[2019-04-17] MEDS ORDERED: TIGHT: 0.2 ML/HR FOR DIALYSIS MISC PRN (06:10)
[2019-04-17 06:35] LABS: HEMOGLOBIN 8.5 g/dL (14.0-18.0); MCH 32.2 PG (27-31); MCHC 32.7 g/dL (33-37); MCV 98.5 FL (81-99); RBC 2.64 XMIL (4.7-6.1); RDW 12.6 % (11.5-14.5); WBC 7.44 X1000 (4.8-10.8)
[2019-04-17 06:49] LABS: CALCIUM 7.2 mg/dL (8.8-10.2); PHOSPHORUS 4.7 mg/dL (2.7-4.5); POTASSIUM 3.4 mmol/L (3.5-5.1)
[2019-04-17 07:02] LABS: CREATININE 6.5 mg/dL (0.7-1.2)
[2019-04-17] MEDS ORDERED: KEFZOL 1 GM/D5W 1 GM/50 ML IVPB IV SCH (09:15)
[2019-04-17] MEDS: ZYLOPRIM PO SCH (14:17)
[2019-04-17] MEDS: LIPITOR PO SCH (14:17)
--- NOTE | 2019-04-17 14:20 | NEPHROLOGY PROGRESS NOTE ---
DATE: 04/17/2019 TIME SEEN: 07:45. SUBJECTIVE: Mr. Alvarez is resting quietly in bed. He is currently getting ready to start dialysis. OBJECTIVE: HEENT: Normocephalic, atraumatic. Conjunctiva is pale pink. He has ANDRÉS. Mucous membranes are dry. Neck: Supple. Trachea midline. No evidence of JVD. Cardiovascular: He is regular rate and rhythm. No murmur or gallop appreciated. Lungs: Clear to auscultation bilaterally. Equal excursion. Abdomen: Soft, nontender. Positive bowel sounds. Genitourinary: Not inspected. He has had 400 mL documented out to void. Extremities: Have no edema. No clubbing or cyanosis. Neurological: Alert and oriented x3. Vital signs: Temperature 97.8 degrees, blood pressure 184/79, heart rate 69, respirations are 17. He is on room air. Last recorded saturation 100%. He has had 660 mL in, 400 mL out to void. LABS: Sodium 135, potassium 3.4, chloride 93, CO2 24, BUN 32, creatinine 6.5, glucose of 90. His anion gap is 18, calcium 7.2, phosphorus 4.7, albumin is 3. White count 2.44, hemoglobin 8.05, hematocrit 26, platelet count 188,000. ASSESSMENT: 1. Chronic kidney disease stage 5D. The patient is requiring his hemodialysis. We will place him on a 2K bath. He is to dialyze for 3.5 hours. We will attempt to pull patient of 2 L of ultrafiltration. 2. Electrolytes and acid-base balance with correction on dialysis. 3. Anemia. Patient's hemoglobin is stable but low. No indications for intervention. PLAN: We will have patient scheduled for outpatient dialysis and attempt to get placement at the dialysis unit in [place]. I would like to thank you for allowing us to follow with this patient. Dictated by DARIN Bundy for Chacorta Mancuso MD Face to face encounter, data reviewed, discussed with Viv Rogers on 04/17/19. I agree with the above assessment and plan of care. cc: DARIN Bundy MD Jagan Reddy, MD [facility]
[2019-04-17] MEDS ORDERED: KEFZOL 1 GM/D5W 1 GM/50 ML IVPB IV ONE (17:00)
[2019-04-17] MEDS: SODIUM CHLORIDE 0.9% INJ SCH (18:52)
[2019-04-17] MEDS: PROTONIX IV SCH (18:52)
[2019-04-17] MEDS: LOVENOX SUBQ SCH (22:07)
--- NOTE | 2019-04-18 03:52 | PROGRESS NOTE ---
DATE: 04/17/2019 SUBJECTIVE: The patient is a little better. I have seen him in the dialysis getting dialysis. He is feeling better, and he is not offering any complaints. PHYSICAL EXAMINATION: Vital Signs: Temperature 97.8 degrees, pulse 75, and blood pressure 116/96. His urine output is about 600 mL, close to less than 500. HEENT: Exam within normal limits. Neck: Supple. Chest: Clear to auscultation. Heart: Sounds are regular. Abdomen: Belly is soft, obese, nontender. INVESTIGATIONS: CBC: White cell count 7.4, hematocrit 26, and platelets 188,000. Sodium 134, potassium 3.4, BUN 32, and creatinine 6.5. ASSESSMENT AND PLAN: 1. Oliguric renal failure. Continue support to hemodialysis. 2. Anemia. Probably, will require blood transfusion if he gets too low. We will defer the decision to Dr. Mancuso. 3. Urinary tract infection with Escherichia coli with BPH. Keflex 1 g after dialysis. 4. Gout on Zyloprim. 5. Hyperlipidemia on Lipitor. 6. His blood pressure is slowly running high. The medicines we will need to restart, he was on lisinopril. Will continue to monitor his renal function tests. 7. DVT prophylaxis with Lovenox. 8. GI prophylaxis with IV Protonix. LEVEL OF DOCUMENTATION: 25 minutes. cc: Abdulkadir Radford MD
[2019-04-18 05:39] LABS: HEMATOCRIT 25.4 % (42.0-52.0); HEMOGLOBIN 8.3 g/dL (14.0-18.0); MCH 32.3 PG (27-31); MCHC 32.7 g/dL (33-37); MCV 98.8 FL (81-99); MPV 8.9 FL (7.4-10.4); RBC 2.57 XMIL (4.7-6.1); RDW 12.7 % (11.5-14.5); WBC 8.24 X1000 (4.8-10.8)
[2019-04-18 05:58] LABS: ALBUMIN 3.1 g/dL (3.5-5.0); CALCIUM 7.7 mg/dL (8.8-10.2); CREATININE 4.8 mg/dL (0.7-1.2); PHOSPHORUS 3.7 mg/dL (2.7-4.5); POTASSIUM 3.8 mmol/L (3.5-5.1)
[2019-04-18] MEDS: LIPITOR PO SCH (08:11)
[2019-04-18] MEDS: ZYLOPRIM PO SCH (08:11)
[2019-04-18] MEDS ORDERED: PRINIVIL PO SCH (09:00)
[2019-04-18] MEDS: PROTONIX IV SCH (18:26)
[2019-04-18] MEDS: SODIUM CHLORIDE 0.9% INJ SCH (18:27)
--- NOTE | 2019-04-18 21:18 | PROVIDER PROGRESS NOTE ---
Progress Note Subjective: Denies any complaints, no shortness of breath, chest pain, change in appetite, or n/v Objective: .3, pulse 75, respiration 16, blood pressure 208/75, O2 sat 100% on room air. General: obese -Estonian male lying in bed in no acute distress HEENT: normocephalic, atraumatic, pupils equal and reactive, mucous membranes moist. Trachea midline. Skin: warm and dry. Dry eschars to bilateral heels. Neck: supple, no JVD appreciated. Cardiovascular: S1S2, regular rate and rhythm. No murmurs or gallops. Respiratory: clear anteriorly with equal entry. Abdomen: soft, obese, nontender nondistended. Bowel sounds active. : non-inspected. Gomes in place. Extremities: trace edema to bilateral lower extremities. Pitting edema to bilateral hips. Neurological: alert and oriented to person, place, and time. Labs: WBC 8.24, hemoglobin 8.3, hematocrit 25.4, platelet count 197, sodium 134, potassium 3.8, chloride 97, carbon dioxide 21, BUN 22, creatinine 4.8. Intake 180, output 2798. Impression: Chronic kidney disease stage 5D. His creatinine and BUN are improved. He had hemodialysis yesterday without complications. We will arrange OP HD. Blood pressure. Above target. Increase lisinopril to 40 mg daily.rg Fluid volume. Euvolemic on exam. Anemia. Low. Does not meet transfusion criteria at this time. Electrolytes and acid base balance. Stable with corrections on hemodialysis treatment. Nutrition. Improving. Encouraged to eat. Ambulation. PT/OT in place. Medication review. no other changes.
[2019-04-18] MEDS: LOVENOX SUBQ SCH (22:02)
--- NOTE | 2019-04-18 23:16 | PROGRESS NOTE ---
DATE: 04/18/2019 SUBJECTIVE: The patient is doing better. He is getting intermittent dialysis. He is making some urine. He had dialysis yesterday. REVIEW OF SYSTEMS: None reported. OBJECTIVE: On physical exam, no change. LABORATORY DATA: White cell count 8.2, hematocrit 25 and platelets 197,000. Sodium 134, potassium 3.8, chloride 97, BUN 22, creatinine 4.8. ASSESSMENT AND PLAN: 1. Acute kidney injury, on temporary dialysis. 2. Chronic renal failure, stable. Continue to monitor. 3. Hypertension. Started on lisinopril. 4. Hyperlipidemia, on Lipitor. 5. Gout, on Zyloprim. 6. History of peptic ulcer disease. Continue intravenous Protonix. 7. Escherichia coli urinary tract infection. Continue on intravenous Ancef. 8. Discussed with the patient. He wants to go for rehab. Social Service consult. 9. Continue to monitor. Level of documentation 25 minutes. cc: Abdulkadir Radford MD
[2019-04-19] MEDS ORDERED: HEPARIN IV PRN (06:33)
[2019-04-19] MEDS ORDERED: TIGHT: 0.2 ML/HR FOR DIALYSIS MISC PRN (06:33)
[2019-04-19] MEDS ORDERED: NS 2,000 ML MISC PRN (06:33)
[2019-04-19] MEDS: LIPITOR PO SCH (09:41)
[2019-04-19] MEDS: ZYLOPRIM PO SCH (09:41)
[2019-04-19] MEDS: PRINIVIL PO SCH (09:41)
[2019-04-19] MEDS ORDERED: KEFZOL 1 GM/D5W 1 GM/50 ML IVPB IV ONE (17:00)
--- NOTE | 2019-04-19 18:08 | PROVIDER PROGRESS NOTE ---
Progress Note Subjective: Denies any complaints, no shortness of breath, chest pain, change in appetite, or n/v Objective: temperature 98.1, pulse 69, respirations 19, blood pressure 187/68, O2 sat 100% on room air. General: obese -[place] Leonean male lying in bed in no acute distress HEENT: normocephalic, atraumatic, pupils equal and reactive, mucous membranes moist. Trachea midline. Skin: warm and dry. Dry eschars to bilateral heels. Neck: supple, 6cm JVD appreciated. Cardiovascular: S1S2, regular rate and rhythm. No murmurs or gallops. Respiratory: clear anteriorly with equal entry. Abdomen: soft, obese, nontender nondistended. Bowel sounds active. : non-inspected. Gomes in place. Extremities: trace edema to bilateral lower extremities. Neurological: alert and oriented to person, place, and time. Labs: intake 240, output 700 Impression: Chronic kidney disease stage 5D. He will have his routine hemodialysis treatment today with the 3K back in 1 to 2 L removal. Blood pressure. Above target. Lisinopril 40mg ordered. Fluid volume. Euvolemic on exam. Anemia. Low. Does not meet transfusion criteria at this time. Electrolytes and acid base balance. Stable with corrections on hemodialysis treatment. Nutrition. Improving. Encouraged to eat. Ambulation. PT/OT in place. We will d/c his Gomes catheter today. Medication review.
[2019-04-19] MEDS: SODIUM CHLORIDE 0.9% INJ SCH (20:41)
[2019-04-19] MEDS: PROTONIX IV SCH (20:41)
[2019-04-19] MEDS: LOVENOX SUBQ SCH (20:41)
--- NOTE | 2019-04-20 00:59 | PROGRESS NOTE ---
DATE: 04/19/2019 SUBJECTIVE: The patient has no complaints. He has a Gomes. Slowly urine output is improving. Urinal appears to be clear. OBJECTIVE: On examination, temperature is 98 degrees, pulse 76, blood pressure is 169/76. Chest is clear. Heart sounds are regular. Belly is soft, nontender. Good bowel sounds. LABORATORY DATA: No labs were drawn. ASSESSMENT AND PLAN: 1. Acute kidney injury, on temporary dialysis. 2. Oliguric renal failure. Continue to monitor renal function tests, and dialysis as needed. 3. Escherichia coli. Continue intravenous Kefzol after dialysis. 4. Hypertension, on Prinivil 40 mg daily. 5. Acid reflux disease with peptic ulcer disease, on Protonix. 6. Gout, on Zyloprim. 7. We will check labs in the morning and will see his progress. Support Architect consult for rehab placement. Level of documentation is 25 minutes. cc: Abdulkadir Radford MD
[2019-04-20 06:02] LABS: HEMATOCRIT 24.7 % (42.0-52.0); MCH 32.3 PG (27-31); MCHC 32.4 g/dL (33-37); MCV 99.6 FL (81-99); MPV 9.3 FL (7.4-10.4); RBC 2.48 XMIL (4.7-6.1); RDW 12.9 % (11.5-14.5); WBC 9.59 X1000 (4.8-10.8)
[2019-04-20 06:18] LABS: ALBUMIN 3.1 g/dL (3.5-5.0); CALCIUM 7.9 mg/dL (8.8-10.2); CREATININE 4.1 mg/dL (0.7-1.2); PHOSPHORUS 2.6 mg/dL (2.7-4.5)
[2019-04-20] MEDS: ZYLOPRIM PO SCH (09:26)
[2019-04-20] MEDS: PRINIVIL PO SCH (09:26)
[2019-04-20] MEDS: LIPITOR PO SCH (09:26)
--- NOTE | 2019-04-20 14:54 | PROVIDER PROGRESS NOTE ---
Progress Note Subjective: Patient complains of pruritus to the general body. He denies shortness of breath, chest pain, loss of appetite, or nausea and vomiting. Objective: temperature 98.1, pulse 74, respirations 17, blood pressure 165/62, O2 sat 100% on room air. General: obese -French male lying in bed in no acute distress HEENT: normocephalic, atraumatic, pupils equal and reactive, mucous membranes moist. Trachea midline. Skin: warm and dry. Dry eschars to bilateral heels. Right tunneled catheter. Neck: supple, 8cm JVD appreciated. Cardiovascular: S1S2, regular rate and rhythm. No murmurs or gallops. Respiratory: clear anteriorly with equal entry. Abdomen: soft, obese, nontender nondistended. Bowel sounds active. : non-inspected. Gomes in place. Extremities: trace edema to bilateral lower extremities and hips. Neurological: alert and oriented to person, place, and time. Labs: intake 410, output 2389. WBC 9.59, hemoglobin 8, hematocrit 24.7, sodium 137, potassium 4.0, chloride 99, carbon dioxide 28, BUN 23, creatinine 4.1, albumin 3.1, phosphorus 2.6. Impression: Chronic kidney disease stage 5D. Patient had his routine hemodialysis treatment yesterday with a 2 L ultrafiltration. His BUN and creatinine are stable. We will plan for hemodialysis tomorrow before anticipated discharge. Blood pressure. Above target. Meds adjusted 48 hours ago. We will monitor this for now. Fluid volume. Euvolemic on exam. Anemia. Low. Does not meet transfusion criteria at this time. Electrolytes and acid base balance. Stable. Nutrition. Improving. Encouraged to eat. Ambulation. PT/OT in place. Medication review.
[2019-04-20] MEDS: PROTONIX PO SCH (17:52)
[2019-04-20] MEDS: LOVENOX SUBQ SCH (21:06)
--- NOTE | 2019-04-20 23:39 | PROGRESS NOTE ---
DATE: 04/20/2019 SUBJECTIVE: The patient is doing better, making urine. Gomes was taken out and no complaints. PHYSICAL EXAMINATION: Temperature is 98 degrees, blood pressure is up and running high. HEENT: Within normal limits. Chest: Clear. Heart: Sounds are regular. Belly is soft, obese, nontender. No neurological deficits. INVESTIGATIONS: CBC: White cell count 9.5, hematocrit 24, platelets 225,000. SMA 7: BUN 23, creatinine 4.1. ASSESSMENT AND PLAN: 1. Acute kidney injury from chronic renal failure on temporary dialysis. See how he progresses. 2. Anemia, transfusion as per the guidelines from Dr. Mancuso. 3. Urinary tract infection. Continue on Keflex post-dialysis. 4. Disposition: Reconcile home medicines at the request of the patient's family. Will transfer to the rehab. LEVEL OF DOCUMENTATION: 25 minutes. cc: Abdulkadir Radford MD
[2019-04-21] MEDS: PROTONIX PO SCH (06:23)
[2019-04-21] MEDS ORDERED: NS 2,000 ML MISC PRN (06:31)
[2019-04-21] MEDS ORDERED: HEPARIN IV PRN (06:31)
[2019-04-21] MEDS ORDERED: TIGHT: 0.2 ML/HR FOR DIALYSIS MISC PRN (06:31)
[2019-04-21] MEDS ORDERED: PREVNAR 13 IM ONE (08:47)
[2019-04-21] MEDS: ZYLOPRIM PO SCH (12:51)
[2019-04-21] MEDS: PRINIVIL PO SCH (12:51)
[2019-04-21] MEDS: LIPITOR PO SCH (12:51)
--- NOTE | 2019-04-21 16:34 | NEPHROLOGY PROGRESS NOTE ---
DATE: 04/21/2019 SUBJECTIVE: He is resting in bed. No complaints today. He reports that he is working with therapy. OBJECTIVE: Blood pressure 149/57, heart rate 68, respirations 17, afebrile.General: No acute distress. Skin: Warm and dry. Conjunctivae are pink. Neck: Veins are not distended. Heart: Regular. Lungs: Equal. No crackles. Abdomen: Soft, nontender. Bowel sounds are present. Extremities: No edema, clubbing, or cyanosis. IMPRESSION/PLAN: 1. Chronic kidney disease 5D. He will have his routine dialysis today. 2. Physical debilitation. He has been able to walk with the walker and a gait belt for stability with therapy. 3. Electrolytes/acid base. In target. 4. Anemia. Below target, but stable. cc: MD Abdulkadir Pollard MD
[2019-04-21] MEDS ORDERED: KEFZOL 1 GM/D5W 1 GM/50 ML IVPB IV ONE (17:00)
--- NOTE | 2019-04-21 19:16 | PROGRESS NOTE ---
DATE: 04/21/2019 SUBJECTIVE: The patient was seen in dialysis, doing very well. No complaints. I spoke to Dr. Mancuso, and he is making urine 600 mL, and we will continue to monitor his progress. I did the paperwork for rehab in [facility]. REVIEW OF SYSTEMS: None reported. PHYSICAL EXAMINATION: Vital Signs: Temperature is 97, pulse is 73, blood pressure is 100/37, weight 254 pounds. HEENT: Within normal limits. Neck: Supple. Chest: Clear. Heart: Sounds are regular. Abdomen: Belly is soft, nontender. INVESTIGATIONS: None reported. ASSESSMENT AND PLAN: 1. Labile hypertension. If this continues to be problematic, he needs to rule out renal artery stenosis. Currently he is on lisinopril 40 daily. 2. Acute chronic kidney failure on acute kidney injury, on temporary dialysis. 3. Urinary tract infection, on cefazolin 1 gram after dialysis. 4. Paperwork was done for rehab. And the social science manager called. Insurance has not approved yet. He is going to stay here until Wednesday. Continue to monitor. LEVEL OF DOCUMENTATION: 25 minutes. cc: Abdulkadir Radford MD
--- NOTE | 2019-04-21 20:08 | DISCHARGE SUMMARY ---
ADMISSION DATE: 04/10/2019 DISCHARGE DATE: 04/26/2019 DISCHARGING DIAGNOSIS: Acute kidney injury with chronic renal insufficiency, most likely prerenal. SECONDARY DIAGNOSES: 1. Extended spectrum beta-lactamases Escherichia coli, sensitive to IV Keflex. 2. Benign prostatic hypertrophy. 3. Type 2 diabetes. 4. History of perforated gastric ulcer. 5. Gout. 6. Hyperlipidemia. 7. Hypertension. 8. Chronic kidney disease, baseline creatinine 2.0. CONSULTS: 1. Chacorta Mancuso MD. 2. Augusto Mayberry MD. PROCEDURES: 1. Vascular catheter of the right subclavian by Dr. Mayberry. BRIEF HISTORY: Please see the history and physical that was done on 04/10/2019. In brief, this 79-year-old, -Israeli male came into the office with myoclonic jerks, altered mental status and decreased urine output. The patient was found to have acute kidney failure with hyperkalemia. The patient was given Kayexalate. A Gomes catheter drained 150 mL of urine. Ultrasound did not show any evidence of post obstruction. The patient was started on temporary dialysis through the vascular catheter and he slowly started making urine, about 700 mL. We will continue to monitor his renal function tests while he is getting temporary dialysis. Urine has Escherichia coli and he needs some IV Keflex after each dialysis. I discussed with Dr. Mancuso. The rest of the hospital course was uneventful. LABS: CBC: White cell count 9.5, hematocrit 24, platelets 225,000. Sodium 137, potassium 4, BUN 23, creatinine 4.1, glucose 139. DISCHARGE INSTRUCTIONS: 1. At the request of the family he is being transferred to the rehab. 2. Initiate vaccination protocol prior to the discharge. Pneumococcal vaccine 23 was given 01/29/2017, pneumococcal 13 was given today. 3. 1,800 calorie ADA diet. 4. Continue to monitor CBC, SMA 7 and requiring transfusion based on the target levels as per Dr. Mancuso. DISCHARGE MEDICATIONS: 1. Gabapentin 600 p.o. b.i.d. 2. Flomax 0.4 daily. 3. Lisinopril 20 daily. 4. Prilosec 20 daily. 5. Lipitor 40 daily. 6. Allopurinol 200 daily. 7. Finasteride 5 mg daily. FOLLOWUP: Monitoring of urine output and CBC, SMA 7, and will follow up in my office in 2 weeks. cc: Abdulkadir Radford MD MTDAnnabel
[2019-04-21 20:57] LABS: BASO# 0.02 X1000 (0.0-0.2); BASO% 0.2 % (0.0-0.8); EOS# 0.24 X1000 (0.0-0.7); EOS% 2.5 % (0.0-10.0); HEMATOCRIT 28.8 % (42.0-52.0); HEMOGLOBIN 9.2 g/dL (14.0-18.0); IMM GRAN# 0.03 X1000 (0.0-0.04); IMM GRAN% 0.3 % (0.0-0.5); LYMPH# 2.61 X1000 (1.2-3.4); LYMPH% 27.2 % (20.5-51.1); MCH 31.7 PG (27-31); MCHC 31.9 g/dL (33-37); MCV 99.3 FL (81-99); MONO# 0.72 X1000 (0.11-0.59); MONO% 7.5 % (1.7-9.3); MPV 9.3 FL (7.4-10.4); NEUT# 5.99 X1000 (1.4-6.5); NEUT% 62.3 % (42.2-75.2); PLT 221 X1000 (130-400); RDW 12.9 % (11.5-14.5); WBC 9.61 X1000 (4.8-10.8)
[2019-04-21 21:08] LABS: ALB/GLOB RATIO 1.2; ALBUMIN 3.2 g/dL (3.5-5.0); CALCIUM 7.9 mg/dL (8.8-10.2); CREATININE 3.2 mg/dL (0.7-1.2); POTASSIUM 3.8 mmol/L (3.5-5.1); TOTAL BILIRUBIN 0.2 mg/dL (0.20-1.00); TOTAL PROTEIN 5.9 g/dL (6.3-8.3)
[2019-04-21] MEDS: LOVENOX SUBQ SCH (21:56)
--- NOTE | 2019-04-21 23:25 | EKG Report ---
Test Performed on : 04/21/2019 9:13:40 PM Test Reason : change in rhythym-2nd degree Wenckebach Blood Pressure : / mmHG Vent. Rate : 074 BPM Atrial Rate : 074 BPM P-R Int : 382 ms QRS Dur : 104 ms QT Int : 420 ms P-R-T Axes : 055 003 062 degrees QTc Int : 466 ms Sinus rhythm. with 1st degree AV block. Otherwise normal ECG Confirmed by Nestor DENTON, Andrés Levine ([id number]) on 04/23/2019 6:55:17 PM
[2019-04-22] MEDS: PROTONIX PO SCH (06:10)
[2019-04-22] MEDS: PRINIVIL PO SCH (08:34)
[2019-04-22] MEDS: LIPITOR PO SCH (08:35)
[2019-04-22] MEDS: ZYLOPRIM PO SCH (08:35)
[2019-04-22 09:54] LABS: CALCIUM 7.8 mg/dL (8.8-10.2); CREATININE 3.8 mg/dL (0.7-1.2); POTASSIUM 3.6 mmol/L (3.5-5.1)
--- NOTE | 2019-04-22 11:49 | PROGRESS NOTE ---
DATE: 04/22/2019 Mr. Alvarez is an 79-year-old, -[place] gentleman admitted with myoclonic jerk, altered mental status and decreased urine output. Patient found to have acute kidney failure with hyperkalemia. The patient was given Kayexalate. He was started on temporary dialysis. His clinical condition gradually improved. Overall patient is doing better. The patient did have first-degree AV block. Yesterday telemetry reported possibility of [*] I repeated EKG and blood work. EKG revealed first-degree AV block. His high sensitivity troponin was elevated to 126. The patient does have chronic kidney disease. The patient denied any chest pain. We are monitoring patient on telemetry. The patient is making urine. No high-grade fever or chills. Denied any nausea or vomiting. No diarrhea, blood, or mucus in the stool. Admission history and physical noted. PAST MEDICAL HISTORY: BPH, UTI, IDDM, gout, hyperlipidemia, hypertension, chronic kidney disease, recently getting treatment for ESBL positive E. coli. OBJECTIVE: Vital Signs: Blood pressure 150/58, pulse 75, respirations 17, temperature 98.5 degrees. Neck: Supple. No JVD. Lungs: Bilateral good air entry present. Few basal crepitations. CVS: S1 and S2 heard. Abdomen: Soft, globular. Bowel sounds present. Difficult to comment organomegaly or mass. Extremities: No cyanosis, clubbing. No acute DVT. CRAB BACKER: Alert, awake. Answering questions well. CONSIDERATION: 1. Hypertension. We will monitor patient closely. Continue current treatment. 2. Chronic kidney disease. The patient is on temporary dialysis. He has started making urine. We will monitor renal function. 3. UTI. 4. History suggestive of gout. 5. Hyperlipidemia. 6. BPH. 7. Insulin dependent diabetes mellitus. PLAN: I am going to repeat cardiac isoenzymes. Close observation. Overall plan discussed with the patient and he is in agreement. LABORATORY DATA: Lab done yesterday reviewed. His last BUN was 20, creatinine 3.2. High sensitivity troponin was 127. cc: MD Abdulkadir Beal MD
--- NOTE | 2019-04-22 11:59 | CARDIOLOGY CONSULTATION ---
DATE: 04/22/2019 HISTORY: Mr. Evgeny Alvarez is an 79-year-old gentleman with history of hypertension. His baseline creatinine was 2.7. He had a catheter placed and has been started on dialysis and is scheduled to go to rehab this week. He does not complain of chest pain. Cardiology was consulted because of Wenckebach pattern and abnormal cardiac enzymes. When he was admitted on 04/10/2019, he had chest pain which moved across to his chest. However, during this hospitalization, since then, he has not had further episodes of chest pain. Abnormal cardiac enzymes were noted and Cardiology was consulted. REVIEW OF SYSTEM: A 14-point review of systems was done. Gastrointestinal System: There is no history of nausea, vomiting, diarrhea. There is no history of hematemesis or melena. Central nervous system: No focal weakness to suggest a CVA or TIA. Genitourinary System: There is no dysuria or hematuria. PAST MEDICAL HISTORY: 1. Chronic kidney disease. A catheter placed and is undergoing dialysis. 2. Diabetes. 3. History of perforated gastric ulcer in the past. 4. Gout. 5. Hyperlipidemia. 6. Hypertension. 7. Hypogonadism. 8. Had left lung surgery for granulomatosis. MEDICATIONS: Gabapentin 600 mg b.i.d., Flomax 0.4, lisinopril 20, Prilosec 20, finasteride and Lasix 80 were his home medications. ALLERGIES: The patient is not known to be allergic to any medication. PHYSICAL EXAMINATION: Vital Signs: Blood pressure 118/46. Cardiovascular: First and second heart sounds were heard. There was no S3 or gallop. Respiratory: Normal air entry. There are no crepitations or rhonchi. Abdomen: Soft, nontender. There was no guarding or rigidity. Bowel sounds were heard. Central nervous system: Alert and oriented. Was moving all 4 extremities. Extremities: Revealed trace edema. DIAGNOSTIC DATA: 1. Electrocardiogram revealed normal sinus rhythm, first-degree AV block. 2. Telemetry revealed Wenckebach pattern. LABORATORY EXAMINATION: 1. Sodium 134, potassium 3.6, BUN 23, creatinine 3.8. When he was admitted, his creatinine had gone up to 6.5. He is undergoing dialysis. 2. Hematology: WBC 9.61, hemoglobin 9.2 hematocrit 28, platelet count of 221,000. 3. His troponin was 0.19 to 0.183 on 04/10/2019. Given the telemetric changes, troponin was drawn, the high sensitive troponin was 127 on 04/21/2019, and this morning it had increased to 140. ASSESSMENT AND PLAN: 1. Mr. Evgeny Alvarez is an 79-year-old gentleman who has history of chronic kidney disease. Had a catheter placed and is undergoing dialysis and has been stable, he has type 2 diabetes. 2. Hypertension, hyperlipidemia. He does not have any chest pain. However the day he was admitted, he had sudden onset of chest pain and cramping like sensation. These changes on the high sensitive troponins could well be related to having had chronic renal failure. Given his history of diabetes, we will get a limited echocardiogram to reassess cardiac and valvular function. In addition, we will set him up for a Cardiolite stress test on Wednesday to rule out ischemia. Thank you for the consult. We will follow hospital course. cc: MD Abdulkadir Holt MD
--- NOTE | 2019-04-22 14:09 | EKG Report ---
Test Performed on : 04/22/2019 09:00:48 AM Test Reason : CP Blood Pressure : / mmHG Vent. Rate : 082 BPM Atrial Rate : 082 BPM P-R Int : 350 ms QRS Dur : 106 ms QT Int : 386 ms P-R-T Axes : 042 -06 060 degrees QTc Int : 450 ms Sinus rhythm. with 1st degree AV block. Otherwise normal ECG Confirmed by Nestor DENTON, Andrés Levine ([id number]) on 04/23/2019 6:55:27 PM
--- NOTE | 2019-04-22 14:16 | EKG Report ---
Test Performed on : 04/22/2019 11:09:05 AM Test Reason : abnormal rhythm, elevated troponin Blood Pressure : / mmHG Vent. Rate : 074 BPM Atrial Rate : 074 BPM P-R Int : 376 ms QRS Dur : 104 ms QT Int : 412 ms P-R-T Axes : 055 003 066 degrees QTc Int : 457 ms Sinus rhythm. with 1st degree AV block. Otherwise normal ECG Confirmed by Nestor DENTON, Andrés Levine ([id number]) on 04/23/2019 6:55:35 PM
--- NOTE | 2019-04-22 21:22 | NEPHROLOGY PROGRESS NOTE ---
DATE: 04/22/2019 SUBJECTIVE: The staff states that he has been up and ambulatory in the hallway with physical therapy. Much more interactive. His heels are dressed. OBJECTIVE: Vital Signs: Blood pressure 170/65, heart rate 73, respiration 18, afebrile. General: No acute distress. Skin: Warm and dry. Neck: Veins approximately 6 cm. No hepatojugular reflux. Heart: Regular. No gallops. Lungs: Equal. No crackles. Abdomen: Soft, obese. Bowel sounds present. Extremities: Trace edema. No clubbing or cyanosis. IMPRESSION: Chronic kidney disease 5D. His next routine dialysis will be Wednesday. Volume status, electrolytes, acid base all in target. Blood pressure is above target but I will not make further changes as his blood pressure has varied widely. Hemoglobin is below target but stable. cc: MD Abdulkadir Pollard MD
[2019-04-22] MEDS: LOVENOX SUBQ SCH (21:24)
[2019-04-23] MEDS: PROTONIX PO SCH (06:27)
[2019-04-23] MEDS: LIPITOR PO SCH (08:37)
[2019-04-23] MEDS: ZYLOPRIM PO SCH (08:38)
[2019-04-23] MEDS: PRINIVIL PO SCH (08:38)
[2019-04-23] MEDS ORDERED: CATAPRES PO PRN (10:00)
--- NOTE | 2019-04-23 10:32 | PROGRESS NOTE ---
DATE: 04/23/2019 SUBJECTIVE: Mr. Alvarez is doing better. No typical chest pain or palpitations. Telemetry did reveal first-degree AV block. His troponin was elevated. Appreciate Cardiology's help. The patient is scheduled to have a stress test tomorrow. The patient is still making urine. The patient is scheduled to have dialysis in the morning. No unusual cough, expectoration. No flare up of gout. His past medical history and medication noted. OBJECTIVE: Vital Signs: Reviewed. Neck: Supple. No JVD. Lungs: Bilateral good air entry present. Few basal crepitations. Cardiovascular: S1 and S2 heard. Abdomen: Soft, globular. Bowel sounds present. MACHINE PRINTER: Alert, awake. Able to move all 4 limbs. CONSIDERATION: 1. Evaluated by traffic survey technician. Patient had an echocardiogram done, result is pending. Will get stress test done. 2. Uncontrolled hypertension. Will optimize medical management. 3. Chronic kidney disease stage 5. 4. History of gout. 5. Hyperlipidemia. 6. Benign prostatic hypertrophy. PLAN: Overall plan discussed at length with the patient. The patient understood and agreed. cc: MD Abdulkadir Beal MD
[2019-04-23] MEDS: NORVASC PO SCH (10:54)
--- NOTE | 2019-04-23 20:01 | ECHO REPORT ---
ORDER DATE: 04/22/2019 INTERPRETING PHYSICIAN: Adryan Nolan MD MEASUREMENTS: 1. Interventricular septum 1.6. 2. Left ventricular posterior wall 1.6. 3. Diastolic diameter 4.1. 4. Left atrium 3.8. 5. Aorta 4.0. SUMMARY OF THE 2-DIMENSION IMAGIN. Aortic valve leaflets were trileaflet, sclerosed, opening normally. 2. Mitral valve was normal. 3. Tricuspid valve was normal. 4. Pulmonic valve was normal. 5. Normal left ventricular cavity size. 6. Moderate concentric left ventricular hypertrophy. Estimated ejection fraction of 55 to 60 percent. 7. There is no aortic stenosis. There is trace aortic regurgitation. There is mild tricuspid regurgitation. Peak velocity across the tricuspid valve less than 2 m/sec. 8. There is mild mitral regurgitation. 9. There is no pericardial effusion or obvious intracardiac mass or thrombus seen. 10. Anterior echo-free space suggestive of pericardial fat pad noted. cc: MD Abdulkadir Holt MD
[2019-04-23] MEDS: LOVENOX SUBQ SCH (20:54)
[2019-04-24] MEDS: PROTONIX PO SCH (06:41)
[2019-04-24] MEDS ORDERED: TIGHT: 0.2 ML/HR FOR DIALYSIS MISC PRN (07:25)
[2019-04-24] MEDS ORDERED: HEPARIN IV PRN (07:25)
[2019-04-24] MEDS ORDERED: NS 2,000 ML MISC PRN (07:25)
[2019-04-24 09:44] LABS: CALCIUM 8.2 mg/dL (8.8-10.2); CREATININE 3.3 mg/dL (0.7-1.2); MAGNESIUM 1.2 mg/dL (1.5-2.7); POTASSIUM 3.4 mmol/L (3.5-5.1)
[2019-04-24] MEDS ORDERED: FLU VACCINE IM ONE (09:48)
[2019-04-24] MEDS ORDERED: MAGNESIUM SULFATE 2 GM/S.W.I. 2 GM/50 ML IVPB IV ONE ×2 (10:40→19:14)
[2019-04-24] MEDS ORDERED: MAGNESIUM SULFATE 4 GM/S.W.I. 4 GM/100 ML IVPB IV ONE ×2 (10:57→12:00)
[2019-04-24] MEDS: NORVASC PO SCH (13:09)
[2019-04-24] MEDS: LIPITOR PO SCH (13:09)
[2019-04-24] MEDS: ZYLOPRIM PO SCH (13:09)
[2019-04-24] MEDS: PRINIVIL PO SCH (13:09)
--- NOTE | 2019-04-24 15:07 | PROVIDER PROGRESS NOTE ---
Progress Note Subjective: patient voices his appetite has picked up over the weekend. He denies chest pain, shortness of breath, nausea vomiting, or pruritus. Objective: temperature 97.9, pulse 72, respirations 22, blood pressure 173/70, 02 sat 100% on room air. General: obese -[place]ian male lying in bed in no acute distress HEENT: normocephalic, atraumatic, pupils equal and reactive, mucous membranes moist. Trachea midline. Skin: warm and dry. Mepilex in place to bilateral heels. Right tunneled catheter. Neck: supple, 8cm JVD appreciated. Cardiovascular: S1S2, regular rate and rhythm. No murmurs or gallops. Respiratory: clear anteriorly with equal entry. Abdomen: soft, obese, nontender nondistended. Bowel sounds active. : non-inspected. Extremities: trace edema to bilateral lower extremities and hips. Neurological: alert and oriented to person, place, and time. Labs: sodium 138, potassium 3.4, chloride 99, carbon dioxide 29, BUN 30, creatinine 3.3, intake 360, output 1475. Impression: Chronic kidney disease stage 5D. He will have his routine hemodialysis treatment today before anticipated discharge. We will follow up with him in the outpatient setting. Blood pressure. Above target. Fluid volume. Slightly expanded. Plans for hemodialysis today. Anemia. Low. Does not meet transfusion criteria at this time. Electrolytes and acid base balance. Stable. Nutrition. Improving. Encouraged to eat. Ambulation. PT/OT in place. Medication review.
[2019-04-24] MEDS ORDERED: KEFZOL 1 GM/D5W 1 GM/50 ML IVPB IV ONE (17:00)
--- NOTE | 2019-04-24 20:33 | PROGRESS NOTE ---
DATE: 04/24/2019 SUBJECTIVE: The patient is doing better. He is still making some urine. He is getting temporary dialysis today. Electrolytes, potassium and magnesium are low. Appreciated Cardiology consult. OBJECTIVE: On exam, temperature is 98.2 degrees, pulse 73, blood pressure 170/70. Weight 254 pounds. HEENT exam within normal limits. Chest is clear. Heart sounds are regular. Belly is soft, nontender. LABORATORY DATA: Sodium 138, potassium 3.4, BUN 30, creatinine 3.3, magnesium 1.2. ASSESSMENT AND PLAN: 1. Acute kidney injury with chronic renal insufficiency, on temporary dialysis through Trevon catheter on right side. 2. Chronic renal failure, stable. 3. Hypertension, stable. 4. Replace the magnesium for hypomagnesemia. 5. Paperwork was done to be transferred to [facility], and waiting for placement. Continue present treatment. 6. Positive troponin. Clinically asymptomatic. No need to do any further workup as per Dr. Nolan. Level of documentation is 25 minutes. cc: Abdulkadir Radford MD
[2019-04-24] MEDS: LOVENOX SUBQ SCH (20:40)
[2019-04-25 05:56] LABS: CALCIUM 8.5 mg/dL (8.8-10.2); CREATININE 3.1 mg/dL (0.7-1.2); MAGNESIUM 2.2 mg/dL (1.5-2.7); POTASSIUM 3.7 mmol/L (3.5-5.1)
[2019-04-25] MEDS: PROTONIX PO SCH (06:25)
[2019-04-25] MEDS ORDERED: LEXISCAN ONE (08:53)
[2019-04-25] MEDS: LIPITOR PO SCH (10:47)
[2019-04-25] MEDS: PRINIVIL PO SCH (10:47)
[2019-04-25] MEDS: ZYLOPRIM PO SCH (10:47)
[2019-04-25] MEDS: NORVASC PO SCH (10:47)
--- NOTE | 2019-04-25 19:08 | PROVIDER PROGRESS NOTE ---
Progress Note Subjective: patient denies any complaints and is smiling today. He voices having a stress test today. Objective: temperature 97.5, pulse 71, respirations 16, but pressure 165/70, the two sat 99% on room air. General: obese -[place]ib[place] male lying in bed in no acute distress HEENT: normocephalic, atraumatic, pupils equal and reactive, mucous membranes moist. Trachea midline. Skin: warm and dry. Mepilex in place to bilateral heels. Right tunneled catheter. Neck: supple, 8cm JVD appreciated. Cardiovascular: S1S2, regular rate and rhythm. No murmurs or gallops. Respiratory: clear anteriorly with equal entry. Abdomen: soft, obese, nontender nondistended. Bowel sounds active. : non-inspected. Extremities: trace edema to bilateral lower extremities and hips. Neurological: alert and oriented to person, place, and time. Labs: sodium 133, potassium 3.7, chloride 94, carbon dioxide 27, BUN 24, creatinine 3.1, calcium 8.5. Impression: Chronic kidney disease stage 5D. He had his routine hemodialysis treatment yesterday with no discomfort. He is awaiting placement at rehab. Blood pressure. Above target. Fluid volume. Slightly expanded. Anemia. Low. Does not meet transfusion criteria at this time. Electrolytes and acid base balance. Stable. Nutrition. Improving. Encouraged to eat. Ambulation. PT/OT in place. Medication review.
--- NOTE | 2019-04-25 21:02 | PROGRESS NOTE ---
DATE: 04/25/2019 SUBJECTIVE: The patient is going for stress test today and apparently he was seen by Dr. Nolan for elevated troponin. He denies of any chest pain. The patient has echocardiogram done and resting scan was done. Appreciated Cardiology consult. REVIEW OF SYSTEMS: None reported. OBJECTIVE: Temperature is 98.3, pulse 76, blood pressure 147/65, 100% on room air.HEENT: Within normal limits. Neck: Supple. No lymphadenopathy. Chest: Bilateral air entry. Heart: Sounds are regular. Belly: Soft, nontender. Good bowel sounds. He had a hemodialysis yesterday. INVESTIGATIONS: Sodium 133, potassium 3.7, BUN 24, creatinine 3.1. ASSESSMENT AND PLAN: 1. Acute kidney injury on chronic renal failure temporary dialysis. 2. Positive troponin, EKG was nondiagnostic. 3. Echocardiography on 04/22 moderate concentric left ventricular hypertrophy. Ejection fraction 55 to 60 percent. No significant valvular heart disease seen and follow up on stress test appreciated, Dr. Nolan consult on 04/22 and in the meantime will hold the discharge to the rehab until the test complete. Otherwise continue present treatment. LEVEL OF DOCUMENTATION: 25 minutes. cc: Abdulkadir Radford MD MTDD
[2019-04-25] MEDS: LOVENOX SUBQ SCH (21:57)
[2019-04-26] MEDS ORDERED: TIGHT: 0.2 ML/HR FOR DIALYSIS MISC PRN (06:25)
[2019-04-26] MEDS ORDERED: HEPARIN IV PRN (06:25)
[2019-04-26] MEDS ORDERED: NS 2,000 ML MISC PRN (06:25)
[2019-04-26] MEDS: PROTONIX PO SCH (06:35)
[2019-04-26 08:07] LABS: HEMATOCRIT 28.5 % (42.0-52.0); HEMOGLOBIN 8.9 g/dL (14.0-18.0); MCH 31.6 PG (27-31); MCHC 31.2 g/dL (33-37); MCV 101.1 FL (81-99); MPV 9.8 FL (7.4-10.4); RBC 2.82 XMIL (4.7-6.1); RDW 12.8 % (11.5-14.5); WBC 8.57 X1000 (4.8-10.8)
[2019-04-26 08:32] LABS: ALBUMIN 3.2 g/dL (3.5-5.0); CALCIUM 8.7 mg/dL (8.8-10.2); PHOSPHORUS 3.6 mg/dL (2.7-4.5); POTASSIUM 3.8 mmol/L (3.5-5.1)
[2019-04-26 11:43] VITALS: BP 134/59
--- NOTE | 2019-04-26 11:58 | Diag Imaging Result Document ---
PROCEDURE NAME: MYOCARDIAL PERF SCAN, STR/REST - 04/24/2019 STUDY: Two day rest/stress Lexiscan myocardial perfusion study. INDICATION: Patient with chest pain, abnormal cardiac enzymes. DESCRIPTION: The patient came into the nuclear laboratory on 04/24 to receive resting injection of technetium 99 sestamibi 43.3 mCi. Multiple tomographic views of the cardiac structures were obtained at rest. Subsequently, the patient underwent Lexiscan infusion, 0.4 mg of Lexiscan infused. At peak infusion, injected with technetium 99 sestamibi 41.9 mCi. Multiple tomographic views of the cardiac structures were obtained following completion of the protocol. SUMMARY OF THE ELECTROCARDIOGRAPHIC PORTION OF THE STUDY: Resting ECG shows sinus rhythm, first- degree AV block, rate 68 beats per minute. Resting blood pressure 178/74. Resting ECG shows a very notable first-degree AV block. During the protocol, the heart rate increased to 72 beats per minute. Blood pressure dropped to 122/57. The patient reported no chest pain, shortness of breath, or palpitations. The ECG showed no significant changes. Following completion of the test, the heart rate and blood pressure returned back to baseline. In summary, electrocardiographic response to infusion of Lexiscan is negative for ischemia. SUMMARY OF THE MYOCARDIAL PERFUSION PORTION OF THE STUDY: Poststress tomographic views of the left ventricle showed normal homogeneous distribution of radiotracer throughout the entire left ventricular myocardium. There is no evidence of any postexercise defect. The rest images showed a basal inferior defect. Polar plots revealed the same. There is no definite convincing evidence of inducible ischemia. There is a very trivial mid inferior wall defect that may represent a subendocardial scar. Gated SPECT shows preserved ejection fraction on the rest images of 75%, on the poststress images 73%. Using the alternative protocol Myometrix, the resting ejection fraction of 78%, poststress 69%. Ventricular volumes are normal. There is no convincing evidence of wall motion abnormality. The lung/heart ratio is normal. TID is 0.96. SUMMARY: This study shows: 1. Unremarkable electrocardiographic response to infusion of Lexiscan. 2. Normal poststress myocardial perfusion scan. There is no scintigraphic evidence of pharmacologic-induced myocardial ischemia. Possibility of a focal mid inferior wall subendocardial scar cannot be entirely excluded. 3. Well-preserved left ventricle systolic function, ejection fraction of 73%, normal ventricular volumes, no all motion abnormalities. Clinical correlation is recommended. cc: MD Adryan Draper MD
--- NOTE | 2019-04-26 14:21 | DISCHARGE SUMMARY ---
ADMISSION DATE: 04/10/2019 DISCHARGE DATE: 04/26/2019 ADDENDUM DISCHARGE SUMMARY The patient has a positive troponin. Denies of any chest pain. Cardiology consult was obtained by Dr. Nolan. Echocardiography normal LV function without any wall motion abnormalities. The patient has a myocardial perfusion scan that was done. It was reported ejection fraction 73%. No pharmacologic induced myocardial ischemia. Normal post-stress myocardial perfusion scan. The patient is getting dialysis today. The patient was discharged to the rehab without any change in the medications and follow up as an outpatient and Dr. Mancuso is monitoring the kidney status function test and continue the antibiotics IV Keflex post dialysis for 10 days. cc: MD Chacorta Holt MD Jagan Reddy, MD
[2019-04-26] MEDS: LIPITOR PO SCH (15:22)
[2019-04-26] MEDS: PRINIVIL PO SCH (15:22)
[2019-04-26] MEDS: ZYLOPRIM PO SCH (15:23)
[2019-04-26] MEDS: NORVASC PO SCH (15:23)
--- NOTE | 2019-04-26 16:07 | PROVIDER PROGRESS NOTE ---
Progress Note Subjective: He denies any uremic complaints. Objective: temperature 98.9, pulse 68, respirations 17, blood pressure 162/78, O2 sat 100% on room air. General: obese -[place]aur[place] male lying in bed in no acute distress HEENT: normocephalic, atraumatic, pupils equal and reactive, mucous membranes moist. Trachea midline. Skin: warm and dry. Mepilex in place to bilateral heels. Right tunneled catheter. Neck: supple, 8cm JVD appreciated. Cardiovascular: S1S2, regular rate and rhythm. No murmurs or gallops. Respiratory: clear anteriorly with equal entry. Abdomen: soft, obese, nontender nondistended. Bowel sounds active. : non-inspected. Extremities: trace edema to bilateral lower extremities and hips. Neurological: alert and oriented to person, place, and time. Labs: WBC 8.57, hemoglobin 8.9, hematocrit 28.5, platelet count 273, sodium 135, potassium 3.8, chloride 96, carbon dioxide 25, BUN 31, creatinine 4.0. Intake 465, output 1150. Impression: Chronic kidney disease stage 5D. He will receive his routine hemodialysis with the 2K bath and a 2 L ultrafiltration. He still is awaiting placement at rehab. Blood pressure. Stable. Fluid volume. Slightly expanded. HD today. Anemia. Low. Does not meet transfusion criteria at this time. Electrolytes and acid base balance. Stable. Nutrition. Improving. Encouraged to eat. Ambulation. PT/OT in place. Medication review. No changes.
[2019-04-26] MEDS ORDERED: KEFZOL 1 GM/D5W 1 GM/50 ML IVPB IV ONE (17:00)
== END 2019-04-26 18:21 | DRG 674 ==
LOC: SUPCPDRO → ED 11:14 → EDIPHOLD 16:18 → 1N 22:29
PROVIDERS: ADMIT Internal Medicine; ATTEND Internal Medicine